=== PATIENT | female | born 1980 | race Caucasian/White ===

== ENCOUNTER 2019-11-18 01:45 | Emergency (ER) | payer OTHER, SELFPAY ==
[2019-11-18 01:59] VITALS: BP 123/80; PULSE 75; RESP 18; TEMP 36.4; O2SAT 100
--- NOTE | 2019-11-18 02:21 | ED.EAR ---
HPI - Ear Problem General Chief complaint: Ear Stated complaint: Ear Pain Source: patient Mode of arrival: ambulatory Limitations: no limitations History of Present Illness HPI Narrative: this is a 39-year-old female presents with dizziness with head movement, with some ear pain and pressure and from her left ear with sinus pressure and congestion with postnasal drip and sore throat, currently no fevers had fever approximately 1 week ago, had a few episodes of diarrhea with no crampy abdominal pain no nausea vomiting no shortness of breath no cough, no chest pain or pressure. Patient has dizziness where she feels off balance is specially when she turns her head from side to side. Complaint: ear pain Location: left ear Duration: constant Severity: moderate Relieving factors: nothing Exacerbating factors: position of head Context: Reports recent illness Discharge from ear: Reports no Related Data Home Medications Medication Instructions Recorded Confirmed bupropion HCl [Wellbutrin SR] 200 mg PO DAILY 11/18/19 11/18/19 sumatriptan succinate [Imitrex] 100 mg PO ONCE 11/18/19 11/18/19 Allergies Allergy/AdvReac Type Severity Reaction Status Date / Time acetaminophen Allergy Unknown Verified 11/18/19 02:22 [From Tylenol-Codeine #3] codeine Allergy Unknown Verified 11/18/19 02:22 [From Tylenol-Codeine #3] Review of Systems Review of Systems: All systems reviewed & are unremarkable except as noted in HPI and below PMFSH Past Medical History Medical History H. pylori infection Kidney stones Migraine Surgical History Surgical History H/O lithotripsy History of cholecystectomy Hx of tubal ligation Family History Family History Father Acute myocardial infarction Other Diabetes mellitus Hypertension Social History Social History Smoking status: Never smoker Alcohol intake: current Substance use: never Substance use type: does not use Gender identity (if verbalized by the patient): Female Spiritual care concerns: No Agree to blood products: Yes Exam HENMT: Head: normal to inspection Ears: hearing grossly normal bilaterally and TM abnormal General nose exam: Abnormal mucous membranes and turbinates present Face and sinus: Facial tenderness on exam of face and sinuses Mouth: Yes moist mucous membranes abnormal Eyes: General: appearance normal, both eyes and all related structures Visual Pelaez: normal visual pelaez by confrontation Neck: Neck: normal visual inspection, full ROM, no lymphadenopathy and no meningeal signs Chest: Chest palpation & inspection: normal inspection of the chest Resp: Effort & Inspection: normal respiratory effort and able to speak in complete sentences Auscultation: clear to auscultation bilaterally Cardio: Jugular venous distension: no JVD Palpation: normal PMI Rate: regular rate Rhythm: regular rhythm GI: Inspection: normal to inspection Auscultation: normal bowel sounds Back/Spine/Pelvis: Back: no CVA tenderness Skin: General skin exam: normal color and no rashes or lesions noted Neuro: General: oriented to person, oriented to place, oriented to time, patient oriented x3 and gait normal Extrem: General: normal to inspection, full ROM and capillary refill normal Psych: Appearance: grossly normal and well kempt Mental Status: mental status grossly normal Speech and movement: Normal speech and movement present Course Course Emergency Course: informed patient of test results, Vital Signs Vital signs: Vital Signs Temperature 36.4 C L 11/18/19 01:59 Pulse Rate 75 11/18/19 01:59 Respiratory Rate 18 11/18/19 01:59 Blood Pressure 123/80 11/18/19 01:59 Pulse Oximetry 100 11/18/19 01:59 Temper
[2019-11-18 02:34] LABS: Influenza Control Valid (Valid)
[2019-11-18 02:39] VITALS: BP 118/70; PULSE 70; RESP 18; O2SAT 100
[2019-11-18] MEDS: MECLIZINE HCL 25 MG TABLET PO (02:46)
[2019-11-19 18:17] LABS: SARS-CoV-2 RNA PCR Negative
== END 2019-11-18 02:50 | disposition home or self-care (01) ==
PROVIDERS: Emergency Provider Emergency Medicine; PCP Family Medicine
DX: J01.10 Acute frontal sinusitis, unspecified (principal)
CPT/HCPCS: 87081; 87635; 87804; 87880; 99283; A9270; C9803; U0003

== ENCOUNTER 2020-05-13 07:00 | Emergency (ER) | payer OTHER, SELFPAY ==
--- NOTE | 2020-05-13 07:33 | ED.UPPEXIN ---
HPI - Extremity Injury (Upper) General Chief Complaint: Extremity Injury, Upper Stated Complaint: shoulder pain after surgery Time Seen by Provider: 05/13/20 08:00 Source: patient Mode of arrival: ambulatory Limitations: no limitations History of Present Illness HPI narrative: 39-year-old woman who underwent right shoulder surgery for rotator cuff injury in March comes in today complaining of severe right anterior shoulder pain and tenderness that started 2 days ago. Patient states that over the weekend she thinks she over did it by some lifting and using floor implements at home. She denies any numbness or tingling. She denies any falls or trauma. She is currently taking anti-inflammatories and Tylenol for her discomfort. She states she went to physical therapy yesterday and that exacerbated her pain. MD complaint: injury to: right and shoulder Onset (ago): day(s) (2) Other Extremity Injury: Right: shoulder Other injuries: none Handedness: right Place: home Severity: severe Relieving factors: immobilization Exacerbating factors: movement of extremity and other (palpation) Associated symptoms: denies other symptoms Treatments prior to arrival: NSAIDS Related Data Home Medications Medication Instructions Recorded Confirmed sumatriptan succinate [Imitrex] 100 mg PO ONCE 11/18/19 05/13/20 citalopram 20 mg PO DAILY 05/13/20 diclofenac sodium 75 mg PO BID 05/13/20 05/13/20 hydroxyzine HCl See Rx Instructions .ROUTE .COMPLEX 05/13/20 05/13/20 topiramate 100 mg PO BID 05/13/20 05/13/20 Allergies Allergy/AdvReac Type Severity Reaction Status Date / Time codeine Allergy Unknown Verified 11/18/19 02:22 [From Tylenol-Codeine #3] Review of Systems Constitutional: Constitutional: Denies chills and Denies fever(s) Cardiovascular: Cardiovascular: Denies chest pain and Denies radiating jaw, neck or arm pain Respiratory: Respiratory: Denies cough and Denies dyspnea Gastrointestinal: Gastrointestinal: Denies nausea and Denies vomiting Musculoskeletal: Musculoskeletal: Reports arthralgias, Reports joint swelling and Denies muscle cramps Hematologic/Lymphatic: Hematologic/Lymphatic: Denies easy bleeding and Denies easy bruising Allergic/Immunologic: Allergic/Immunologic: Denies lip swelling and Denies tongue swelling [facility] Past Medical History Medical History (Updated 05/13/20 @ 08:13 by Ashvin Canales MD) H. pylori infection Kidney stones Migraine Surgical History Surgical History H/O lithotripsy H/O shoulder surgery History of cholecystectomy Hx of tubal ligation Family History Family History Father Acute myocardial infarction Other Diabetes mellitus Hypertension Social History Social History Smoking status: Never smoker Alcohol intake: current Substance use: never Substance use type: does not use Gender identity (if verbalized by the patient): Female Spiritual care concerns: No Agree to blood products: Yes Exam Const: General: healthy appearing and alert Orientation/consciousness: patient oriented x3 Limitations: no limitations Other: moderate acute distress. Resp: Effort & Inspection: normal respiratory effort and not labored Auscultation: clear to auscultation bilaterally, no rales, no rhonchi and no wheezes Cardio: Rate: regular rate Rhythm: regular rhythm Heart sounds: no murmurs Skin: General skin exam: normal color, no jaundice and no pallor Rashes: no rashes Neuro: General: patient oriented x3, moves all extremities, no focal motor deficits and CN's II-XI intact bilaterally Speech: normal speech Gait exam (Neuro): Normal gait present Extrem: General: normal to inspection and no clubbing, cyanosis or edema Other: Tenderness to palpation over the right anterior glenohumeral joint. Th
[2020-05-13 07:47] VITALS: BP 123/95; PULSE 70; RESP 16; TEMP 36.5; O2SAT 99
[2020-05-13] MEDS: HYDROcodone/acetaminophen (*CRX) 5-325 MG TABLET 1 TAB PO (08:11)
== END 2020-05-13 08:31 | disposition home or self-care (01) ==
PROVIDERS: Emergency Provider Emergency Medicine; PCP Family Medicine
DX: S46.911A Strain of unspecified muscle, fascia and tendon at shoulder and upper arm level, right arm, initial encounter (principal); X50.9XXA Other and unspecified overexertion or strenuous movements or postures, initial encounter
CPT/HCPCS: 99283; A9270

== ENCOUNTER 2021-08-18 14:10 | Emergency (ER) | payer OTHER, SELFPAY ==
--- NOTE | ~2021-08-18 | CT_ITS ---
EXAMINATION: CT abdomen pelvis wo con DATE: 08/18/2021 16:03 INDICATION: Right lower abdominal pain TECHNIQUE: Computed tomography (CT) of the abdomen and pelvis was performed without intravenous contr ast. The dose-length product was 267.10 mGy-cm. Automated exposure control and iterative reconstructi on technique were employed. COMPARISON: CT dated 01/25/2019. FINDINGS: Lung bases are unremarkable. No significant pleural or pericardial effusion. Heart size nor mal. No significant vascular abnormality. No lymphadenopathy. Nonobstructive bowel gas pattern with m oderate colonic fecal loading. There are surgical changes of tubal ligation. There is metallic radiod ensity in the right pelvis, of uncertain etiology. The appendix is not positively visualized. There is no pericecal inflammatory change to suggest appendicitis. Status post cholecystectomy. The liver, spleen, pancreas, adrenal glands are unremarkable. There are nonobstructing bilateral renal stones. No hydronephrosis. No ureteral stones are identified. No free air or free fluid. IMPRESSION: 1. Nonobstructing bilateral nephrolithiasis. Reviewed, dictated and finalized at location A.
[2021-08-18 14:25] VITALS: BP 105/58; PULSE 77; RESP 20; TEMP 36.3; O2SAT 100
[2021-08-18] MEDS: SODIUM CHLORIDE 0.9% IV 1,000 ML 999 ML IV CONT (15:23)
[2021-08-18] MEDS: ONDANSETRON INJ 4 MG/2 ML VIAL IV PUSH (15:24)
[2021-08-18 15:25] LABS: Basophils Absolute Auto 0.04 K/mm3 (0.00-0.10); Basophils Percent Auto 0.5 % (0.0-1.0); Eosinophils Percent Auto 3.8 % (1.0-6.0); Hematocrit 35.7 % (35.0-49.0); Hemoglobin 11.7 g/dL (12.0-15.0); Immature Granulocyte Absolute 0.02 K/mm3 (0.00-0.00); Immature Granulocyte Percent A 0.3 % (0.0-0.0); Lymphocytes Absolute Auto 2.87 K/mm3 (1.10-4.50); Lymphocytes Percent Auto 36.8 % (18.0-42.0); Mean Corpuscular HGB Conc 32.8 g/dL (32.0-36.0); Mean Corpuscular Hemoglobin 29.6 pg (27.0-31.0); Mean Corpuscular Volume 90.4 fL (78.0-102.0); Mean Platelet Volume 10.6 fl (9.2-11.8); Monocytes Percent Auto 6.4 % (2.0-11.0); Neutrophils Absolute Auto 4.1 K/mm3 (1.7-7.2); Neutrophils Percent Auto 52.2 % (50.0-70.0); Platelet Count Result 243 K/mm3 (150-420); Red Blood Count 3.95 M/mm3 (4.20-5.40); Red Cell Distribution Width 13.5 % (11.6-14.4); White Blood Count 7.8 K/mm3 (4.8-10.8)
[2021-08-18] MEDS: MORPHINE SULFATE (*CRX) 4 MG/ML INJ 2 MG IV PUSH (15:25)
[2021-08-18] MEDS: PANTOPRAZOLE SODIUM IV 40 MG VIAL IV PUSH (15:26)
[2021-08-18 15:29] LABS: Add Urine Microscopic? NO; Appearance Urine Clear (Clear); Bilirubin Urine Negative (Negative); Blood Urine Negative (Negative); Color Urine Yellow (Yellow); Glucose Urine UA Negative (Negative); Ketones Urine Negative (Negative); Leukocyte Esterase Ur Negative LEU/UL (Negative); Nitrate Urine Negative (Negative); Protein Urine Negative (Negative); Specific Grav Ur >= 1.030 (1.010-1.020); Urobilinogen Urine 0.2 mg/dL (0.2-1.0)
[2021-08-18 15:36] LABS: SPREG INTERNAL CONTROL Positive; Serum Qual hCG Negative
[2021-08-18 15:39] LABS: Partial Thromboplastin Time 30.3 SEC (23.90-30.70)
[2021-08-18 15:46] LABS: Alanine Aminotransferase 18 U/L (14-59); Albumin Level 3.1 g/dL (3.4-5.0); Alkaline Phosphatase 66 U/L (46-116); Anion Gap 11 mmol/L (8-16); Aspartate Amino Transferase 12 U/L (15-37); Bilirubin,Total 0.2 mg/dL (0.00-1.00); Blood Urea Nitrogen 13 mg/dL (7-18); Calcium 8.2 mg/dL (8.5-10.1); Carbon Dioxide 18 mmol/L (21-32); Chloride 110 mmol/L (98-108); Estimated CRCL calculation 56 ml/min; Estimated Glomerular Filt Rate > 60; Glucose 85 mg/dL (70-99); Lipase 81 U/L (73-393); Osmolality Calculated 287 mOsm/kg (285-295); Potassium 3.7 mmol/L (3.5-5.1); Sodium 139 mmol/L (136-145); Total Protein 6.2 g/dL (6.4-8.2)
[2021-08-18 16:00] VITALS: BP 114/64; PULSE 84; RESP 18; O2SAT 100
--- NOTE | 2021-08-18 16:53 | ED.ABDPAIN ---
HPI - Abdominal Pain General Chief Complaint: Abdominal Pain Stated Complaint: Right side pain,fever,diarrhea Time Seen by Provider: 08/18/21 14:14 Source: patient and RN notes reviewed Mode of arrival: ambulatory Limitations: no limitations History of Present Illness MD elicited complaint: abdominal pain Pertinent past history: gastritis Onset (ago): day(s) (1) Pain Consistency: constant and colicky Location: epigastric, RLQ and R flank Severity: mild Pain scale (0-10): 6 Quality: aching and dull Radiation: epigastric Exacerbating factors: nothing Relieving factors: nothing Associated symptoms: nausea, vomiting and diarrhea Related Data Home Medications Medication Instructions Recorded Confirmed lisdexamfetamine 40 mg capsule 40 mg PO DAILY 06/18/21 (Vyvanse) methylphenidate HCl 5 mg tablet 5 mg PO DAILY 06/18/21 sumatriptan succinate 50 mg tablet tablet PO 06/18/21 topiramate 100 mg capsule 100 mg PO BID 06/18/21 sprinkle,extended release 24 hr lisdexamfetamine 40 mg capsule 40 mg PO DAILY 08/18/21 08/18/21 (Vyvanse) methylphenidate HCl 10 mg tablet 10 mg PO DAILY 08/18/21 08/18/21 sumatriptan succinate 50 mg tablet 50 mg PO DAILY 08/18/21 08/18/21 topiramate 100 mg tablet 100 mg PO BID 08/18/21 08/18/21 Allergies Allergy/AdvReac Type Severity Reaction Status Date / Time codeine AdvReac Vomiting Verified 08/25/21 10:22 Review of Systems Review of Systems: All systems reviewed & are unremarkable except as noted in HPI and below Constitutional: Constitutional: Reports no additional constitutional complaints Eyes: Eyes: Reports no additional eye complaints ENT: Reports system reviewed and no additional complaints, except as documented Cardiovascular: Cardiovascular: Reports no additional cardiovascular complaints Respiratory: Respiratory: Reports no additional respiratory complaints Gastrointestinal: Gastrointestinal: Reports abdominal pain and Reports heartburn Genitourinary: Genitourinary: Reports no additional female genitourinary complaints Musculoskeletal: Musculoskeletal: Reports no additional musculoskeletal complaints Integumentary/Breasts: Skin/Breast: Reports system reviewed and no additional complaints, except as docu Neurologic: Reports system reviewed and no additional complaints, except as documented Psychiatric: Psychiatric: Reports no additional psychiatric complaints Endocrine: Endocrine: Reports no additional endocrine complaints Hematologic/Lymphatic: Hematologic/Lymphatic: Reports no additional hematologic/lymphatic complaints Allergic/Immunologic: Allergic/Immunologic: Reports no additional allergic/immunologic complaints [facility] Past Medical History Medical History Gastritis H. pylori infection Kidney stones Migraine Surgical History Surgical History H/O lithotripsy H/O shoulder surgery History of cholecystectomy Hx of tubal ligation Family History Family History Father Acute myocardial infarction Other Diabetes mellitus Hypertension Social History Social History Smoking status: Never smoker Alcohol intake: current Alcohol use details: rare Substance use: never Substance use type: does not use Gender identity (if verbalized by the patient): Female Spiritual care concerns: No Agree to blood products: Yes Exam Const: General: healthy appearing and no acute distress Nutritional Appearance: well nourished Orientation/consciousness: patient oriented x3 Limitations: no limitations HENMT: Head: normal to inspection Ears: external ears normal, TM's normal bilaterally and EAC's normal General nose exam: Normal external nose present and Normal nares present Face and sinus: normal facial exam and sinuses nonten
[2021-08-18 17:03] VITALS: BP 110/74; PULSE 79; RESP 18; TEMP 36.6; O2SAT 99
== END 2021-08-18 17:14 | disposition home or self-care (01) ==
PROVIDERS: Emergency Provider Emergency Medicine; PCP Family Medicine
DX: N20.0 Calculus of kidney (principal); K29.70 Gastritis, unspecified, without bleeding; K52.9 Noninfective gastroenteritis and colitis, unspecified
CPT/HCPCS: 36415; 74176; 80053; 81003; 83690; 84703; 85025; 85730; 96361; 96374; 96375; 99284; C9113; J2270; J2405; J7030

== ENCOUNTER 2021-11-17 12:01 | Outpatient (CLI) | payer BC, MEDICAID, SELFPAY ==
[2021-11-17 12:29] LABS: Basophils Absolute Auto 0.1 K/mm3 (0.0-0.1); Basophils Percent Auto 0.9 % (0.2-1.2); Eosinophils Absolute Auto 0.2 K/mm3 (0-0.3); Eosinophils Percent Auto 2.9 % (0-4.4); Hematocrit 39.4 % (37.0-47.0); Hemoglobin 12.6 g/dL (12.0-15.0); Immature Granulocyte Absolute 0.02 K/mm3 (0.00-0.031); Immature Granulocyte Percent A 0.3 % (0-0.5); Lymphocytes Absolute Auto 2.37 K/mm3 (0.9-3.2); Lymphocytes Percent Auto 36.2 % (18.3-44.2); Mean Corpuscular Hemoglobin 29.9 pg (26-34); Mean Corpuscular Volume 93.4 fl (80-100); Mean Platelet Volume 9.8 fl (7.4-10.4); Monocytes Absolute Auto 0.5 K/mm3 (0.1-0.6); Monocytes Percent Auto 7.5 % (2.6-8.5); Neutrophils Absolute Auto 3.4 K/mm3 (1.3-6.7); Neutrophils Percent Auto 52.2 % (45.5-73.1); Platelet Count Result 257 k/mm3 (150-375); Red Blood Count 4.22 M/mm3 (4.2-5.4); Red Cell Distribution Width 13.5 % (11.5-14.5); White Blood Count 6.5 K/mm3 (4.5-10.0)
== END 2021-11-17 12:02 | disposition home or self-care (01) ==
LOC: ANHSURGERY 12:08
PROVIDERS: PCP Family Medicine; Visit Provider Obstetrics & Gynecology
DX: N92.0 Excessive and frequent menstruation with regular cycle (principal); Z01.818 Encounter for other preprocedural examination
CPT/HCPCS: 36415; 85025; 86850; 86900; 86901

== ENCOUNTER 2021-11-20 01:10 | Day surgery (SDC) | payer BC, MEDICAID, SELFPAY ==
[2021-11-11 08:49] VITALS: BMI 27.9
--- NOTE | 2021-11-11 08:56 | PC.NURSE ---
Report to the Outpatient Waiting Room, entrance under the green pavilion located off [facility], at time _0930_ on date _[id number]_. OR Time: _1130_. Time changes happen often and if your time is changed the preop area will call you the afternoon before. - You and your visitor will be asked to self-screen and do not enter if you have any COVID symptoms. - Only one visitor and NO children visitors are allowed at this time. - The patient visitor is requested to leave or wait in car when not with patient due to restrictions. - A mask is required within the hospital. Patients may have clear liquids (water, carbonated beverages, clear teas, apple juice) until 3 hours prior to surgery with a maximum of 20 ounces. - No food from midnight until time of surgery Take the following medications with a SIP of water the morning of surgery: ___None Medications to discontinue per physician ____None Date to take last dose Please no make-up, nail citizen of [place], hairspray, perfume, deodorant, or body powder the day of surgery. No jewelry (including any body piercings) or valuables the day of surgery, leave them at home. Please take a shower or bath the night before, or the morning of, surgery with an antibacterial soap. Wear comfortable, loose fitting clothing. - Jewelry must be removed prior to entering the operating room. Rings and piercings that are not removed may be cut off. - The hospital will not accept responsibility for valuables. - Please leave all valuables, including medications, at home the day of surgery. If you are going home after surgery, a licensed petroleum transport driver must drive you home. - NO public transportation without another adult. - We recommend that an adult stay with you for 24 hours following discharge. - We also recommend that you do not drive, make important decision, drink alcoholic beverages, or take any drugs that were not prescribed by your health care provider for at least 24 hours after your discharge time. Follow any additional instructions given to you from your surgeon. If you or anyone in your household have experienced Covid symptoms in the past week, please notify your surgeon or the nurse liaison at the phone number below for possible testing. Telephone instructions given to _Patient___and asked if any additional questions and then verbalized understanding. Patient advised to call surgeon office or pre surgery nurse liaison [phone] if any additional questions.
--- NOTE | 2021-11-16 12:15 | PM.IMHP ---
H&P: HPI History of Present Illness Date/Time: 11/16/21 12:15 Chief Complaint: Pelvic pain and bleeding Narrative: This is a 41-year-old multiparous patient admitted for robotic hysterectomy. She has Essure and the he has had pain discomfort a second-degree prolapse. She opts removal of the uterus and tubes. Risks and benefits reviewed including but not exclusive of , aspiration pneumonia, bleeding, transfusion, perforation under to bowel, bladder, ureters, or other internal organs with need for laparotomy. She received the [employer] handout entitled hysterectomy as well as the [facility] [place] handout. She had all questions answered and asked to proceed PMFSH Past Medical History Medical History Gastritis H. pylori infection Kidney stones Migraine Surgical History Surgical History H/O lithotripsy H/O shoulder surgery History of cholecystectomy Hx of tubal ligation Family History Family History Father Acute myocardial infarction Other Diabetes mellitus Hypertension Social History Social History Smoking packs per day: 0.5 Smoking cigarettes per day: 10.0 Years smoked: 18 Smoking pack-years: 9.00 Smoking status: Former smoker Tobacco type: cigarettes Alcohol intake: current Alcohol use details: rare Substance use: never Substance use type: does not use Gender identity (if verbalized by the patient): Female Spiritual care concerns: No Agree to blood products: Yes Meds Home Medications and Allergies Home Medications Medication Instructions Recorded Confirmed Type lisdexamfetamine 40 mg capsule 40 mg PO DAILY 08/18/21 11/11/21 History (Surekha) methylphenidate HCl 10 mg tablet 10 mg PO DAILY 08/18/21 11/11/21 History ondansetron 4 mg disintegrating 4 mg PO Q8H #14 tabs 08/18/21 11/11/21 Rx tablet sumatriptan succinate 50 mg tablet 50 mg PO DAILY 08/18/21 11/11/21 History topiramate 100 mg tablet 100 mg PO BID 08/18/21 11/11/21 History omeprazole 40 mg capsule,delayed 40 mg PO BID 11/11/21 11/11/21 History release sucralfate 1 gram tablet 1 g PO QID 11/11/21 11/11/21 History Allergies Allergy/AdvReac Type Severity Reaction Status Date / Time codeine AdvReac Intermediate Vomiting Verified 11/11/21 08:45 Exam Const: General: cooperative, healthy appearing and comfortable Nutritional Appearance: average body habitus Orientation/consciousness: oriented to person, oriented to place and oriented to time HENMT: Head: normal to inspection Neck: Neck: normal visual inspection Chest: Chest palpation & inspection: normal inspection of the chest Resp: Effort & Inspection: normal respiratory effort Cardio: Rate: regular rate Rhythm: regular rhythm Heart sounds: S1 normal heart sound present and S2 normal heart sound present GI: Inspection: normal to inspection Auscultation: normal bowel sounds : Speculum Exam - Vagina: normal appearance of the vagina Speculum Exam - Cervix: normal appearance of the cervix Bimanual exam- vagina & uterus: enlarged and Uterine tenderness Bimanual Exam- Adnexa, other: normal adnexae Assessment and Plan Assessment and plan (1) Pelvic pain: Code(s): R10.2 - Pelvic and perineal pain Status: Acute (2) Vaginal bleeding: Code(s): N93.9 - Abnormal uterine and vaginal bleeding, unspecified Status: Acute Plan Robotic total vaginal hysterectomy and bilateral salpingectomy as
[2021-11-20] VITALS (11 sets, daily range): BP systolic 93–132; BP diastolic 63–86; PULSE 49–77; RESP 12–18; TEMP 36.3–36.6; O2SAT 95–100
--- NOTE | 2021-11-20 06:30 | WPDHPUPDATE1 ---
History and Physical Update Update Date/Time: 11/20/21 06:30 History and Physical has been reviewed, including an updated exam of the patient. There are NO changes in the patient's condition. Risks, benefits, and alternatives have been discussed and questions answered. Patient agrees to proceed with procedure.
[2021-11-20] MEDS: ACETAMINOPHEN 500 MG TABLET 1000 MG PO (09:17)
[2021-11-20] MEDS: LACTATED RINGERS 1,000 ML 30 ML IV CONT ×2 (09:30→12:58)
[2021-11-20] MEDS: KETOROLAC 15 MG/ML VIAL (*BKC) IV PUSH (09:31)
--- NOTE | 2021-11-20 10:21 | WPDANESEPPF ---
Anes - Initial Pre Proc Eval Procedure: Operation Date: 11/20/21 11:30 Proposed Procedures p Robotic Assisted Total Vaginal Hysterectomy with Bilateral Salpingectomy - Justice Padilla MD Date/Time: 11/20/21 10:21 Surgeon: Justice Padilla MD Pre Op Diagnosis: Pelvic Pain, Heavy Bleeding, Essure Implant Patient Data Age: 41 Gender: F Height: 1.5 m Weight: 63 kg Last Vital Signs Temp 36.6 C 11/20/21 09:00 Pulse 77 11/20/21 09:00 Resp 16 11/20/21 09:00 BP 132/86 11/20/21 09:00 Pulse Ox 100 11/20/21 09:00 O2 Del Method Room Air 11/20/21 09:00 Allergies Allergy/AdvReac Type Severity Reaction Status Date / Time codeine AdvReac Intermediate Vomiting Verified 11/20/21 09:14 Home Medications Medication Instructions Recorded Confirmed Type lisdexamfetamine 40 mg capsule 40 mg PO DAILY 08/18/21 11/20/21 History (Vyvanse) methylphenidate HCl 10 mg tablet 10 mg PO DAILY 08/18/21 11/20/21 History ondansetron 4 mg disintegrating 4 mg PO Q8H #14 tabs 08/18/21 11/20/21 Rx tablet sumatriptan succinate 50 mg tablet 50 mg PO DAILY 08/18/21 11/20/21 History topiramate 100 mg tablet 100 mg PO BID 08/18/21 11/20/21 History omeprazole 40 mg capsule,delayed 40 mg PO BID 11/11/21 11/20/21 History release sucralfate 1 gram tablet 1 g PO QID 11/11/21 11/20/21 History hydrocodone 5 mg-acetaminophen 325 1 tablet PO Q4H PRN pain #30 tabs 11/20/21 Rx mg tablet Patient hx anesthesia problems: none Family hx anesthesia problems: none Results Review: All pre-operative results and documents have been reviewed as part of the pre-operative evaluation. [facility] Past Medical History Medical History Gastritis H. pylori infection Kidney stones Migraine Surgical History Surgical History H/O lithotripsy H/O shoulder surgery History of cholecystectomy Hx of tubal ligation Family History Family History Father Acute myocardial infarction Other Diabetes mellitus Hypertension Social History Social History Smoking packs per day: 0.5 Smoking cigarettes per day: 10.0 Years smoked: 18 Smoking pack-years: 9.00 Smoking status: Former smoker Tobacco type: cigarettes Alcohol intake: current Alcohol use details: rare Substance use: never Substance use type: does not use Living arrangements: with family Gender identity (if verbalized by the patient): Female Spiritual care concerns: No Agree to blood products: Yes Anes - Eval Final PreProcedure Day of Procedure 11/20/21 10:21 Patient weight: overweight Heart: regular rate and rhythm Lungs: clear to auscultation Airway: Mallampati scale class II Neurological: alert and oriented Last oral intake: >/= 8 hours ASA classification: II Emergent: no Anesthetic plan: proceed Anesthesia type and monitoring: general ETT and standard monitoring Results Review: All pre-operative results and documents have been reviewed as part of the pre-operative evaluation. Informed Consent: The patient's anesthetic plan and its attendant risks and benefits were discussed with the patient/family/POA. Questions were solicited and answers provided to the satisfaction of the patient/family/POA.
[2021-11-20] MEDS: ceFAZolin 2 GM/D5W 50 ML 2 GM/50 ML BAG IVPB (11:43)
--- NOTE | 2021-11-20 12:48 | W.PM.PROC2 ---
Procedure Note - Detailed Date of Procedure 11/20/21 Pre-op Diagnosis Pelvic Pain, Heavy Bleeding, Essure Implant Post-op Diagnosis Other Procedure Performed Robotic total vaginal hysterectomy bilateral salpingectomy /destruction of endometriosis Surgeon Justice Padilla MD Anesthesia General Indications sh 41-year-old female with pelvic pain an Essure implants that were in the wrong position. She has also had irregular bleeding Findings the uterus was enlarged. The Essure implants were seen puncturing through the fundus of the uterus bilaterally. A portion was seen attached to bladder mucosa. Multiple powder burn endometriosis areas were seen along the uterosacral ligaments Description of Procedure the patient was prepped draped in the normal sterile fashion placed in the dorsal lithotomy position. Under excellent general trach anesthesia weighted speculum placed in posterior fornix vagina. Anterior lip of the cervix grasped with single-tooth tenaculum the uterus sounded to 10cm. Serial dilatation was performed followed by passage of the 10. ARLENE and the the 3. 0.5 cold cup. A 16 Telugu catheter was placed in the bladder and drained of clear urine. The remainder the instruments removed and gloves were changed. a supraumbilical incision was made the Veress needle passed in the abdomen. Abdomen filled with CO2 gas [id number] the 8mm trocar advanced in the abdomen the downside visualized with no injury seen. Patient placed in Trendelenburg and right left lateral quadrant incisions made 8mm trocars were then entered through the peritoneum under direct visualization assuring no injury. A right upper quadrant incision made the 8mm trocar advanced under direct visualization assuring no injury. The robot was docked. Attention was turned to the console. The left round ligament was grasped, burned, cut. Anteriorly a bladder flap was formed by sharply dissecting the peritoneum and reflecting the bladder caudally away from the cervix and uterus to the opposite round ligament was clamped, burned, cut. The Essure could be seen protruding through the uterine fundus bilaterally. The left fallopian tube was sharply dissected away from the uterine and ovarian tissue and passed off through the right upper quadrant incision. The opposite fallopian tube was dissected away and passed through the right upper quadrant incision as well. The utero-ovarian ligament was then skeletonized on the left conserve the left ovary. This was clamped, burned, cut and brought to the level of previously cut round ligament. In like fashion conserving the right ovary the utero-ovarian ligament was clamped, burned, cut and brought to the level of previously cut round ligament. The cardinal and broad ligaments were serially skeletonized then on the left hugging the cervix and uterus clamping burning and cutting until the uterine vessels could be seen on the left. These were individually clamped, burned, cut. In like fashion the right cardinal and broad ligaments were serially skeletonized clamping burning cutting it and hugging the cervix and uterus until the large uterine vessels could be seen on the right. These were individually clamped, burned, cut. At that point excellent blanching the uterus was noted and the colpotomy incision was made in the cervix and uterus were passed through the vagina. The vagina then closed with continuous running 0V lock from lateral edge to lateral edge back to the midline. Irrigation undertaken to clear. The small areas of endometriosis were then sharply cut with monopolar cautery. Irrigation was undertaken and excellent hemostasis noted. The robot was undocked. The incisions closed with 4 Monocryl and glue after gas had been removed from the abdomen. The patient was awakened and went to recovery in satisfactory condition. All sponge, needle, instrument counts were correct. There were no immediate complications noted Estimated Blood Los
[2021-11-20] MEDS: fentaNYL CITRATE INJ (*CRX) 100 MCG/2 ML VIAL 25 MCG IV PUSH ×4 (13:15→13:32)
[2021-11-20] MEDS: HYDROmorphone HCL INJ (*CRX) 1 MG/ML SYR 0.5 MG IV PUSH ×4 (13:47→14:36)
[2021-11-20] MEDS: DEXTROSE 5%/LACTATED RINGERS 1,000 ML 125 ML IV CONT (15:43)
--- NOTE | 2021-11-20 17:02 | PM.DS ---
DS: Admitting Diagnosis Discharge Date 11/21/2021 Admitting Diagnosis Enlarged uterus/pelvic pain/displacement of Essure DS: Discharge Diagnosis Discharge Diagnosis (1) Vaginal bleeding: Code(s): N93.9 - Abnormal uterine and vaginal bleeding, unspecified Status: Acute (2) Pelvic pain: Code(s): R10.2 - Pelvic and perineal pain Status: Acute DS: Summary Hospital Course Reason for hospitalization: Patient was admitted for robotic hysterectomy and bilateral salpingectomy Hospital Course: The patient underwent bilateral salpingectomy and robotic hysterectomy on 11/20/2021. The procedure was unremarkable. She did have extruded Essure on either side and had some small areas of endometriosis were treated. Her ovaries remain. Her hospital course was unremarkable. She remained afebrile. She was up, ambulating, voiding difficulty, eating a regular diet, voiding without difficulty, and general without complaints. Time Spent with Patient Time attestation: Total time spent providing and/or coordinating discharge services: Exam Const: General: cooperative, healthy appearing and comfortable Orientation/consciousness: oriented to person, oriented to place and oriented to time Resp: Effort & Inspection: normal respiratory effort Cardio: Rate: regular rate Rhythm: regular rhythm Heart sounds: S1 normal heart sound present and S2 normal heart sound present GI: Inspection: normal to inspection and incision (Wants were clean dry and intact) DS: Data Data Completed and Pending Pending studies at discharge: Pending at discharge 11/20/21 12:07 Surgical [PTH] Routine Discharge Plan Discharge Patient Disposition: Home, Self-Care Stand Alone Forms: General Discharge Instructions Follow-up/Referrals: Justice Shipley MD [Physician] - Discharge Medications: New hydrocodone-acetaminophen 5-325 mg tablet 1 tablet PO Q4H PRN (Reason: pain) Qty: 30 0RF Continued methylphenidate HCl 10 mg tablet 10 mg PO DAILY sumatriptan succinate 50 mg tablet 50 mg PO DAILY topiramate 100 mg tablet 100 mg PO BID Vyvanse 40 mg capsule 40 mg PO DAILY ondansetron 4 mg tablet,disintegrating 4 mg PO Q8H Qty: 14 0RF omeprazole 40 mg Capsule,Delayed Release(Dr/Ec) 40 mg PO BID sucralfate 1 gram tablet 1 g PO QID
[2021-11-20] MEDS: KETOROLAC 30 MG/ML VIAL (*BKC) IV PUSH (17:10)
[2021-11-20] MEDS: ONDANSETRON HCL ODT 4 MG TABLET (19:13)
[2021-11-20] MEDS: SIMETHICONE 80 MG TAB.CHEW PO ×2 (19:13→23:35)
[2021-11-20] MEDS: HYDROcodone/acetaminophen (*CRX) 10-325 MG TABLET 1 TAB PO ×2 (19:14→23:34)
[2021-11-20] MEDS: PANTOPRAZOLE 40 MG TABLET PO (20:40)
[2021-11-21] VITALS: BP 108/70; PULSE 50; RESP 16; TEMP 36.3; O2SAT 100
[2021-11-21] MEDS: HYDROcodone/acetaminophen (*CRX) 10-325 MG TABLET 1 TAB PO ×2 (03:46→07:24)
[2021-11-21 05:10] LABS: Basophils Percent Auto 0.2 % (0.2-1.2); Eosinophils Percent Auto 0.1 % (0-4.4); Hematocrit 34.3 % (37.0-47.0); Hemoglobin 10.7 g/dL (12.0-15.0); Immature Granulocyte Absolute 0.03 K/mm3 (0.00-0.031); Immature Granulocyte Percent A 0.3 % (0-0.5); Lymphocytes Absolute Auto 1.83 K/mm3 (0.9-3.2); Mean Corpuscular HGB Conc 31.2 g/dl (32-36); Mean Corpuscular Hemoglobin 29.7 pg (26-34); Mean Corpuscular Volume 95.3 fl (80-100); Mean Platelet Volume 10.5 fl (7.4-10.4); Monocytes Absolute Auto 0.6 K/mm3 (0.1-0.6); Neutrophils Absolute Auto 6.2 K/mm3 (1.3-6.7); Neutrophils Percent Auto 71.4 % (45.5-73.1); Platelet Count Result 216 k/mm3 (150-375); Red Cell Distribution Width 13.2 % (11.5-14.5); White Blood Count 8.7 K/mm3 (4.5-10.0)
--- NOTE | 2021-11-21 07:38 | PM.GYNPNOP ---
DRAWER IN HAND - A/P Postoperative Procedures: Procedures Operation Date: 11/20/21 11:30 Actual Procedure Side Surgeon p Robotic Assisted Total Vaginal Hysterectomy with Bilateral Salpingectomy; Destruction of Endometriosis Bilateral Justice Padilla MD Postoperative day: 1 Postoperative status: doing well Postoperative plan: routine post-op care, see orders, advance diet and discharge Time Spent With Patient Time: Total time spent is greater than 50% in coordination of care (as documented) at patient's floor/unit and/or counseling patient: Time with patient: less than 15 minutes DRAWER IN HAND- PN:Subj Post-Op Subjective Date/time seen: 11/21/21 07:38 Subjective: patient reports feeling better, patient has no complaints, patient desires discharge, pain is well controlled and patient is tolerating oral intake Exam Const: General: cooperative, healthy appearing and comfortable Nutritional Appearance: average body habitus Orientation/consciousness: oriented to person, oriented to place and oriented to time HENMT: Head: normal to inspection Resp: Effort & Inspection: normal respiratory effort GI: Inspection: normal to inspection and incision (Wounds were clean dry intact) DRAWER IN HAND - PN: Obj Data Vital Signs Vital Signs: Vital Signs - 24 hr 11/20/21 09:00 11/20/21 12:58 11/20/21 13:13 Temperature 98 F 97.4 F L Pulse Rate 77 67 55 L Respiratory Rate 16 18 15 Blood Pressure 132/86 93/73 L 111/79 Pulse Oximetry 100 100 100 Oxygen Delivery Room Air Simple Face Mask Simple Face Mask Oxygen Flow Rate 10 10 11/20/21 13:28 11/20/21 13:43 11/20/21 14:00 Temperature Pulse Rate 58 L 58 L 56 L Respiratory Rate 16 12 12 Blood Pressure 109/72 114/75 118/71 Pulse Oximetry 100 99 98 Oxygen Delivery Room Air Room Air Room Air Oxygen Flow Rate 11/20/21 14:15 11/20/21 14:30 11/20/21 14:45 Temperature Pulse Rate 56 L 49 L 52 L Respiratory Rate 12 12 16 Blood Pressure 107/75 107/73 110/71 Pulse Oximetry 95 95 96 Oxygen Delivery Room Air Room Air Room Air Oxygen Flow Rate 11/20/21 15:40 11/20/21 18:53 11/20/21 19:50 Temperature 97.5 F L 97.4 F L Pulse Rate 56 L 51 L Respiratory Rate 16 18 Blood Pressure 107/63 104/64 Pulse Oximetry 97 100 Oxygen Delivery Room Air Oxygen Flow Rate 11/21/21 00:00 Temperature 97.4 F L Pulse Rate 50 L Respiratory Rate 16 Blood Pressure 108/70 Pulse Oximetry 100 Oxygen Delivery Oxygen Flow Rate Intake/Output Intake/Output: Intake & Output 11/18/21 11/19/21 11/20/21 11/21/21 23:59 23:59 23:59 23:59 Intake Total 1250 200 Output Total 150 600 Balance 1100 -400 Meds/Results Medications: Active Medications Generic Name Dose Route Start Last Admin Trade Name Freq PRN Reason Stop Dose Admin Hydrocodone Bitart/Acetaminophen 1 tab 11/20/21 14:57 Hydrocodone/Acetaminophen (*Crx) 5-325 Mg Tablet PO Q3H PRN Pain Rated 5 or Less Hydrocodone Bitart/Acetaminophen 1 tab 11/20/21 14:57 11/21/21 07:24 Hydrocodone/Acetaminophen (*Crx) 10-325 Mg Tablet PO 1 tab Q3H PRN Administration Pain Rated 6 or Greater Docusate Sodium 100 mg 11/20/21 17:00 11/20/21 17:44 Docusate Sodium 100 Mg Capsule PO Not Given BID SYED Enoxaparin Sodium 40 mg 11/21/21 09:00 Enoxaparin 40 Mg/0.4 Ml Syringe SUB-Q DAILY SYED Dextrose/Lactated Ringer's 1,000 mls @ 125 mls/hr 11/20/21 14:57 11/21/21 06:57 Dextrose 5%/Lactated Ringers IV CONT Not Given .Q8H SYED Ibuprofen 600 mg 11/20/21 14:57 Ibuprofen 600 Mg Tablet PO Q6H PRN Cramping Ketorolac Tromethamine 30 mg 11/20/21 14:57 11/20/21 17:10 Ketorolac 30 Mg/Ml Vial (*Bkc) IV PUSH 11/25/21 14:56 30 mg Q6H PRN Administration Pain Rated 4-6 Naloxone HCl 0.1 mg 11/20/21 14:57 Naloxone Hcl 0.4 Mg/Ml Vial IV PUSH Q2M PRN Respiratory rate less than 10 Ondansetron HCl 4 mg 11/20/21 14:57 Ondansetron Inj 4 Mg/2 Ml Vi
[2021-11-21 08:00] VITALS: BP 103/69; PULSE 48; RESP 12; TEMP 36.4; O2SAT 100
[2021-11-21] MEDS: ENOXAPARIN 40 MG/0.4 ML SYRINGE SUB-Q (09:11)
[2021-11-21] MEDS: DOCUSATE SODIUM 100 MG CAPSULE PO (09:11)
[2021-11-21] MEDS: PANTOPRAZOLE 40 MG TABLET PO (09:11)
== END 2021-11-21 10:01 | disposition home or self-care (01) ==
LOC: ANHSURGERY 08:48 → ANHOB2 15:06
PROVIDERS: PCP Family Medicine; Visit Provider Obstetrics & Gynecology
PROC: (CPT 58662; principal; 2021-11-20 11:30)
DX: N93.9 Abnormal uterine and vaginal bleeding, unspecified (principal); R10.2 Pelvic and perineal pain; N80.3C3 Endometriosis of bilateral uterosacral ligament(s), unspecified depth; N80.00 Endometriosis of the uterus, unspecified; N83.8 Other noninflammatory disorders of ovary, fallopian tube and broad ligament; T83.39XA Other mechanical complication of intrauterine contraceptive device, initial encounter; Y83.8 Other surgical procedures as the cause of abnormal reaction of the patient, or of later complication, without mention of misadventure at the time of the procedure; Z87.891 Personal history of nicotine dependence
CPT/HCPCS: 58662; 58552; S2900; 36415; 85025; 88307; 99199; A9270; J0690; J1100; J1170; J1650; J1885; J2250; J2405; J2704; J2710; J3010; J7030; J7120; J7121

== ENCOUNTER 2022-04-20 15:10 | Emergency (ER) | payer MEDICAID, SELFPAY ==
--- NOTE | ~2022-04-20 | CT_ITS ---
EXAMINATION: CT abdomen pelvis wo con DATE: 04/20/2022 16:17 INDICATION: Hematuria. Acute pelvic pain. TECHNIQUE: Computed tomography (CT) of the abdomen and pelvis was performed without intravenous contr ast. Automated exposure control and iterative reconstruction technique were employed. The dose-length product was 177.40 mGy-cm. COMPARISON: 08/18/2021 and 01/25/2019 FINDINGS: Lung bases are clear. Heart size is normal. No pericardial or pleural effusion. Cholecystectomy clips the gallbladder fossa. Liver, spleen, pancreas and bilateral adrenal glands are normal. 2.1 cm cyst at the upper pole of the right kidney. Couple additional subcentimeter cysts in the left kidney with intermediate attenuation on the current study but with characteristic low attenuation without enhance ment on earlier study from 2019. Bilateral nephrolithiasis with 4 stones measuring up to 3-4 mm at th e upper pole of the left kidney and 5 stones measuring up to 2 mm in the left kidney. No ureteral sto og or hydronephrosis. Tiny appendicolith at the tip of the normal appendix with no periappendiceal i nflammatory stranding to suggest acute appendicitis. No abnormal bowel wall thickening or obstruction . Bladder is normal. The uterus is not identified and has likely been surgically resected. No free in traperitoneal gas or fluid. No pathologically enlarged abdominal or pelvic lymphadenopathy. Bones are unremarkable. IMPRESSION: 1. Bilateral nonobstructing nephrolithiasis. Reviewed, dictated and finalized at location L.
[2022-04-20 15:10] VITALS: BP 131/97; PULSE 95; RESP 18; TEMP 36.2; TEMP 36.6; O2SAT 100
--- NOTE | 2022-04-20 15:43 | ED.FEMALEGU ---
HPI - Female Genitourinary General Chief complaint: Urogenital-Female Stated complaint: painful urination Time Seen by Provider: 04/20/22 15:38 Source: patient and RN notes reviewed Mode of arrival: ambulatory Limitations: no limitations History of Present Illness MD elicited complaint: other ( Pressure when she urinates) Onset (ago): minute(s) (30) Location of symptoms: perineum Severity: moderate Quality of pain: dull Consistency: now resolved Vaginal discharge: none Vaginal bleeding: none Exacerbating factors: none Relieving factors: none Associated symptoms: denies other symptoms Treatment prior to arrival: none Related Data Home Medications Medication Instructions Recorded Confirmed lisdexamfetamine 40 mg capsule 40 mg PO DAILY 08/18/21 04/20/22 (Vyvanse) methylphenidate HCl 10 mg tablet 10 mg PO DAILY 08/18/21 04/20/22 topiramate 100 mg tablet 100 mg PO BID 08/18/21 04/20/22 omeprazole 40 mg capsule,delayed 40 mg PO BID 11/11/21 04/20/22 release sucralfate 1 gram tablet 1 g PO QID 11/11/21 04/20/22 Allergies Allergy/AdvReac Type Severity Reaction Status Date / Time codeine AdvReac Intermediate Vomiting Verified 04/20/22 15:32 Review of Systems Review of Systems: All systems reviewed & are unremarkable except as noted in HPI and below PMFSH Past Medical History Medical History Gastritis H. pylori infection Kidney stones Migraine Surgical History Surgical History H/O lithotripsy H/O shoulder surgery History of cholecystectomy Hx of tubal ligation Family History Family History Father Acute myocardial infarction Other Diabetes mellitus Hypertension Social History Social History Smoking packs per day: 0.5 Smoking cigarettes per day: 10.0 Years smoked: 18 Smoking pack-years: 9.00 Smoking status: Former smoker Tobacco type: cigarettes Alcohol intake: current Alcohol use details: rare Substance use: never Substance use type: does not use Living arrangements: with family Gender identity (if verbalized by the patient): Female Spiritual care concerns: No Agree to blood products: Yes Exam Const: General: healthy appearing, no acute distress and alert Nutritional Appearance: well nourished Orientation/consciousness: patient oriented x3 Limitations: no limitations HENMT: Head: normal to inspection Ears: external ears normal Face/Nose/Sinus: Normal external nose present Face and sinus: normal facial exam Mouth: Yes moist mucous membranes Eyes: Conjunctivae: conjunctivae normal Pupils: Equal, round and reactive pupils present EOM: EOMs intact bilaterally Neck: Neck: normal visual inspection Resp: Effort & Inspection: normal respiratory effort Auscultation: clear to auscultation bilaterally Cardio: Rate: regular rate Rhythm: regular rhythm GI: GI Palp: Yes Soft to palpation, Yes Tenderness to palpation present (GI) ( mild suprapubic), No Guarding due to palpation present (GI) and No Rebound tenderness present Auscultation: normal bowel sounds Back/Spine/Pelvis: Cervical Spine: cervical ROM normal Thoracic/Lumbar Spine: thoraco-lumbar ROM normal Skin: General skin exam: normal color Rashes: no rashes Neuro: General: patient oriented x3, moves all extremities, no focal motor deficits and CN's II-XI intact bilaterally Speech: normal speech Gait exam (Neuro): Normal gait present Extrem: General: normal to inspection and no clubbing, cyanosis or edema Psych: Appearance: grossly normal and well kempt Mental Status: mental status grossly normal Affect: normal affect Attitude: cooperative Course Vital Signs Vital signs: Vital Signs Temperature 36.2 C L 04/20/22 15:10 Pulse Rate 95 04/20/22 15:10 Respiratory Rate 18 04/20
[2022-04-20 15:44] LABS: Bilirubin Urine Negative (Negative); Blood Urine 3+ (Negative); Color Urine Light Yellow (Yellow); Glucose Urine UA Negative (Negative); Ketones Urine Negative (Negative); Leukocyte Esterase Ur Negative (Negative); Nitrate Urine Negative (Negative); Protein Urine Trace (Negative); Urobilinogen Urine 0.2 mg/dL (0.2-1.0); pH Urine 6.5 (5.0-8.0)
[2022-04-20 15:47] LABS: Add Urine Microscopic? YES; Appearance Urine Slightly Cloudy (Clear); RBC Urine >75 /hpf (0-2)
[2022-04-20 15:48] LABS: Bacteria Urine 1+ /hpf; Squamous Epithelial Cell Urine Few /hpf (Few); WBC Urine None seen /hpf (0-3)
--- NOTE | 2022-04-20 16:08 | PC.NURSE ---
PT IS IN CT AT THIS TIME. PT IS AWAITING LAB RESULTS. NAD NOTED PRIOR TO CT. WILL CONTINUE TO MONITOR. SIG OTHER AT BEDSIDE.
[2022-04-20 16:11] LABS: Basophils Absolute Auto 0.05 K/mm3 (0.00-0.10); Basophils Percent Auto 0.5 % (0.0-1.0); Hematocrit 43.4 % (35.0-49.0); Hemoglobin 14.3 g/dL (12.0-15.0); Immature Granulocyte Absolute 0.04 K/mm3 (0.00-0.00); Immature Granulocyte Percent A 0.4 % (0.0-0.0); Lymphocytes Absolute Auto 2.58 K/mm3 (1.10-4.50); Lymphocytes Percent Auto 24.7 % (18.0-42.0); Mean Corpuscular HGB Conc 32.9 g/dL (32.0-36.0); Mean Corpuscular Hemoglobin 30.8 pg (27.0-31.0); Mean Corpuscular Volume 93.3 fL (78.0-102.0); Mean Platelet Volume 9.9 fl (9.2-11.8); Monocytes Absolute Auto 0.72 K/mm3 (0.10-0.90); Monocytes Percent Auto 6.9 % (2.0-11.0); Neutrophils Absolute Auto 6.9 K/mm3 (1.7-7.2); Neutrophils Percent Auto 66.5 % (50.0-70.0); Platelet Count Result 250 K/mm3 (150-420); Red Blood Count 4.65 M/mm3 (4.20-5.40); Red Cell Distribution Width 13.2 % (11.6-14.4); White Blood Count 10.4 K/mm3 (4.8-10.8)
[2022-04-20 16:26] LABS: Alanine Aminotransferase 18 U/L (14-59); Albumin Level 3.9 g/dL (3.4-5.0); Alkaline Phosphatase 71 U/L (46-116); Anion Gap 10 mmol/L (8-16); Aspartate Amino Transferase 12 U/L (15-37); Bilirubin,Total 0.5 mg/dL (0.00-1.00); Blood Urea Nitrogen 10 mg/dL (7-18); Calcium 9.1 mg/dL (8.5-10.1); Carbon Dioxide 28 mmol/L (21-32); Chloride 104 mmol/L (98-108); Estimated Glomerular Filt Rate > 60; Glucose 98 mg/dL (70-99); Osmolality Calculated 293 mOsm/kg (285-295); Potassium 3.6 mmol/L (3.5-5.1); Sodium 142 mmol/L (136-145); Total Protein 7.5 g/dL (6.4-8.2)
[2022-04-20 17:02] VITALS: BP 128/78; PULSE 88; RESP 16; O2SAT 98
== END 2022-04-20 17:02 | disposition home or self-care (01) ==
PROVIDERS: Emergency Provider Emergency Medicine; PCP Family Medicine
DX: N02.9 Recurrent and persistent hematuria with unspecified morphologic changes (principal); Z87.891 Personal history of nicotine dependence
CPT/HCPCS: 36415; 74176; 80053; 81001; 85025; 99284

== ENCOUNTER 2022-12-20 11:27 | Outpatient (CLI) | payer BC, SELFPAY ==
--- NOTE | ~2022-12-20 | XR_ITS ---
Left Shoulder Technique: AP and scapular Y views were obtained. Clinical History: Pain Findings: No acute fracture seen. Possible mild widening of the coracoclavicular distance. Glenohumer al joint is intact. Soft tissues are unremarkable. Impression: No acute fracture. Possible mild widening of the coracoclavicular distance. Correlate for AC joint separation, possibly chronic. Consider bilateral weightbearing and nonweightbearing shoulder radiographs to further assess for AC joint instability, as indicated. Reviewed, dictated and finalized at location M. LASS LENS GENERATOR Impression: No acute fracture. Possible mild widening of the coracoclavicular distance. Correlate for AC joint separation, possibly chronic. Consider bilateral weightbearing and nonweightbe aring shoulder radiographs to further assess for AC joint instability, as indic ated.
== END 2022-12-20 11:28 | disposition home or self-care (01) ==
LOC: CHSIMG 11:32
PROVIDERS: PCP Family Medicine; Visit Provider Family Medicine
DX: M25.512 Pain in left shoulder (principal)
CPT/HCPCS: 73030

== ENCOUNTER 2022-12-21 12:10 | Outpatient (CLI) | payer BC, SELFPAY ==
--- NOTE | ~2022-12-21 | XR_ITS ---
AP weightbearing and nonweightbearing views of the bilateral AC joints CLINICAL HISTORY: Injury FINDINGS: Bilateral AC joints are symmetric. No fracture or dislocation seen. No instability seen wit h weightbearing. Soft tissues are unremarkable. IMPRESSION: Unremarkable exam. Reviewed, dictated and finalized at location . SS TEST TECHNICIAN IMPRESSION: Unremarkable exam.
== END 2022-12-21 12:11 | disposition home or self-care (01) ==
LOC: CHSIMG 12:13
PROVIDERS: PCP Family Medicine; Visit Provider Family Medicine
DX: M25.512 Pain in left shoulder (principal)
CPT/HCPCS: 73050

== ENCOUNTER 2023-06-19 22:19 | Emergency (ER) | payer BC, SELFPAY ==
[2023-06-19] VITALS (14 sets, daily range): BP systolic 111–136; BP diastolic 85–107; PULSE 87–112; RESP 20; TEMP 36.6; O2SAT 93–98
--- NOTE | ~2023-06-19 | XR_ITS ---
Portable chest x-ray Comparison: 01/25/2019 Clinical History: Chest pain Findings: Lungs are clear, without focal consolidation or pleural effusion. Cardiomediastinal silho uette is stable. Bones and soft tissues are unremarkable. Impression: Clear lungs. Reviewed, dictated and finalized at location . Impression: Clear lungs.
--- NOTE | 2023-06-19 22:26 | ED.GENADULT ---
HPI - General Adult General Chief complaint: Unspecified Stated complaint: foreign body sensation Time Seen by Provider: 06/19/23 22:24 Source: patient Mode of arrival: ambulatory Limitations: no limitations History of Present Illness HPI narrative: patient is a 42-year-old female with a significant past medical history that presents today GERD pain. She has extremity wound is bad GERD pain that starts down the esophagus. She says also feels like something is stuck in her esophagus. She is able to tolerate liquids and solids currently. She says she does feel little bit nauseous. Denies any vomiting or diarrhea. Denies any fevers. She states the pain is about a 6/10 down the esophagus and says she does have a history of very bad GERD pain. He took some [id number] Pepto-Bismol this did not help. MD complaint: GERD Onset (ago): day(s) Location: chest and abdomen Radiation: non-radiation Severity: moderate Severity scale (1-10): 4 Quality: burning and stabbing Pain Consistency: constant Relieving factors: none Exacerbating factors: none Associated symptoms: denies other symptoms Treatments prior to arrival: none Related Data Home Medications Medication Instructions Recorded Confirmed lisdexamfetamine 40 mg capsule 40 mg PO DAILY 08/18/21 04/20/22 (Vyvanse) methylphenidate HCl 10 mg tablet 10 mg PO DAILY 08/18/21 04/20/22 topiramate 100 mg tablet 100 mg PO BID 08/18/21 04/20/22 sucralfate 1 gram tablet 1 g PO QID 11/11/21 04/20/22 Allergies Allergy/AdvReac Type Severity Reaction Status Date / Time codeine AdvReac Intermediate Vomiting Verified 04/20/22 15:32 Review of Systems Review of Systems: All systems reviewed & are unremarkable except as noted in HPI and below Constitutional: Constitutional: Reports as per HPI and Reports no additional constitutional complaints Eyes: Eyes: Reports no additional eye complaints ENT: Reports hoarseness Cardiovascular: Cardiovascular: Reports as per HPI Respiratory: Respiratory: Reports as per HPI Gastrointestinal: Gastrointestinal: Reports dyspepsia, Reports heartburn and Reports nausea Genitourinary: Genitourinary: Reports no additional female genitourinary complaints Musculoskeletal: Musculoskeletal: Reports no additional musculoskeletal complaints Integumentary/Breasts: Skin/Breast: Reports system reviewed and no additional complaints, except as docu Neurologic: Reports system reviewed and no additional complaints, except as documented Psychiatric: Psychiatric: Reports no additional psychiatric complaints Endocrine: Endocrine: Reports no additional endocrine complaints Hematologic/Lymphatic: Hematologic/Lymphatic: Reports no additional hematologic/lymphatic complaints Allergic/Immunologic: Allergic/Immunologic: Reports no additional allergic/immunologic complaints PMFSH Past Medical History Medical History Gastritis H. pylori infection Kidney stones Migraine Surgical History Surgical History H/O lithotripsy H/O shoulder surgery History of cholecystectomy Hx of tubal ligation Family History Family History Father Acute myocardial infarction Other Diabetes mellitus Hypertension Social History Social History Smoking packs per day: 0.5 Smoking cigarettes per day: 10.0 Years smoked: 18 Smoking pack-years: 9.00 Smoking status: Former smoker Tobacco type: cigarettes Alcohol intake: current Alcohol use details: rare Substance use: never Substance use type: does not use Living arrangements: with family Gender identity (if verbalized by the patient): Female Spiritual care concerns: No Agree to blood products: Yes Exam Const: General: cooperative, healthy appearing and comfortable HENMT:
[2023-06-19] MEDS: SODIUM CHLORIDE 0.9% IV 1,000 ML 999 ML IV CONT (22:37)
[2023-06-19] MEDS: ONDANSETRON INJ 4 MG/2 ML VIAL IV PUSH (22:38)
[2023-06-19] MEDS: KETOROLAC 30 MG/ML VIAL (*BKC) IV PUSH (22:39)
[2023-06-19] MEDS: MORPHINE SULFATE (*CRX) 4 MG/ML INJ 2 MG IV PUSH (22:39)
[2023-06-19] MEDS: MAG HYDROX/ALUMINUM HYD/SIMETH 30 ML, PHENobarb/HYOSCY/ATROPINE/SCOP 32.4 MG, LIDOCAINE... PO (22:40)
[2023-06-19 22:59] LABS: Basophils Absolute Auto 0.03 K/mm3 (0.00-0.10); Basophils Percent Auto 0.2 % (0.0-1.0); Eosinophils Absolute Auto 0.24 K/mm3 (0.02-0.50); Eosinophils Percent Auto 1.8 % (1.0-6.0); Hematocrit 39.6 % (35.0-49.0); Hemoglobin 12.8 g/dL (12.0-15.0); Immature Granulocyte Absolute 0.08 K/mm3 (0.00-0.00); Immature Granulocyte Percent A 0.6 % (0.0-0.0); Lymphocytes Absolute Auto 2.41 K/mm3 (1.10-4.50); Mean Corpuscular HGB Conc 32.3 g/dL (32-36); Mean Corpuscular Hemoglobin 29.7 pg (27.0-31.0); Mean Corpuscular Volume 91.9 fL (78.0-102.0); Mean Platelet Volume 9.3 fl (9.2-11.8); Monocytes Absolute Auto 0.65 K/mm3 (0.10-0.90); Monocytes Percent Auto 4.9 % (2.0-11.0); Neutrophils Absolute Auto 9.95 K/mm3 (1.70-7.20); Neutrophils Percent Auto 74.5 % (50.0-70.0); Platelet Count Result 264 K/mm3 (150-420); Red Blood Count 4.31 M/mm3 (4.20-5.40); Red Cell Distribution Width 12.5 % (11.6-14.4); White Blood Count 13.4 K/mm3 (4.8-10.8)
[2023-06-19 23:07] LABS: Appearance Urine Clear (Clear); Bilirubin Urine Negative (Negative); Blood Urine 1+ (Negative); Color Urine Light Yellow (Yellow); Glucose Urine UA Negative (Negative); Ketones Urine Negative (Negative); Leukocyte Esterase Ur Negative LEU/UL (Negative); Nitrate Urine Negative (Negative); Protein Urine Negative (Negative); Specific Grav Ur 1.015 (1.010-1.020); Urobilinogen Urine 0.2 mg/dL (0.2-1.0)
[2023-06-19 23:15] LABS: Alanine Aminotransferase 26 U/L (14-59); Albumin Level 2.8 g/dL (3.4-5.0); Alkaline Phosphatase 100 U/L (46-116); Anion Gap 12 mmol/L (4-12); Aspartate Amino Transferase 13 U/L (15-37); Bilirubin,Total 0.1 mg/dL (0.00-1.00); Blood Urea Nitrogen 11 mg/dL (7-18); Calcium 8.1 mg/dL (8.5-10.1); Carbon Dioxide 25 mmol/L (21-32); Chloride 103 mmol/L (98-108); Estimated CRCL calculation 64 ml/min; Estimated Glomerular Filt Rate 57; Glucose 122 mg/dL (70-99); Lipase 64 U/L (16-77); Osmolality Calculated 290 mOsm/kg (285-295); Potassium 3.3 mmol/L (3.5-5.1); Sodium 140 mmol/L (136-145); Total Protein 6.3 g/dL (6.4-8.2)
[2023-06-19 23:16] LABS: Lactic Acid Reflex 1.3 mmol/L (0.4-2.0)
[2023-06-19 23:18] LABS: Add Urine Microscopic? YES; Squamous Epithelial Cell Urine Moderate /hpf (Few)
[2023-06-19] MEDS: PANTOPRAZOLE SODIUM IV 40 MG VIAL IV PUSH (23:57)
[2023-06-20] VITALS: O2SAT 97
--- NOTE | 2023-06-20 00:01 | ECG_ITS ---
SEE SCANNED COPY FOR CONFIRMED REPORT MTDD
[2023-06-20 00:02] VITALS: BP 105/95; O2SAT 97
[2023-06-20 00:15] VITALS: O2SAT 98
[2023-06-20 00:30] VITALS: O2SAT 96
[2023-06-20 00:32] VITALS: BP 110/92; PULSE 101; RESP 20; O2SAT 97
== END 2023-06-20 00:40 | disposition home or self-care (01) ==
PROVIDERS: Emergency Provider Family Medicine; PCP Family Medicine
DX: K21.9 Gastro-esophageal reflux disease without esophagitis (principal); Z87.11 Personal history of peptic ulcer disease; Z87.891 Personal history of nicotine dependence
CPT/HCPCS: 36415; 71045; 80053; 81001; 83605; 83690; 85025; 93005; 96361; 96374; 96375; 99284; A9270; C9113; J1885; J2270; J2405; J7030

== ENCOUNTER 2023-11-28 16:43 | Emergency (ER) | payer BC, SELFPAY ==
--- NOTE | ~2023-11-28 | CT_ITS ---
CLINICAL INDICATION: Right-sided flank pain. COMPARISON: 04/20/2022. TECHNIQUE: Computed tomography (CT) of the abdomen and pelvis was performed without intravenous contr ast. The dose-length product was 672.34 mGy-cm. FINDINGS/OBSERVATIONS: Visualized lower thorax:The bilateral lung bases are clear. The heart is of normal size, without pericardial effusion. A small hiatal hernia is present. Liver: The liver is unremarkable in size and attenuation Gallbladder and biliary system: The gallbladder is surgically absent. Pancreas: Limited evaluation of the pancreas secondary to the lack of intravenous contrast. Spleen: The spleen is unremarkable in echogenicity and size. Kidneys: Right sided hydroureteronephrosis secondary to a 7 mm calculus within the mid right ureter. Multiple subcentimeter nonobstructing stones identified bilaterally. The kidneys are nodular in contour, unchanged from 04/20/2022. Adrenal glands: The bilateral adrenal glands are unremarkable. Gastrointestinal tract: Bowel loops are decompressed, without a significant diverticulosis. Appendix:The appendix is not definitively visualized. However, no pericecal inflammatory change is id entified suggest the presence of acute appendicitis. Vasculature: Unremarkable Lymph nodes: No pathologically enlarged or morphologically suspicious lymph nodes within the retroper itoneum or at the root of the mesentery. Pelvic structures:The uterus is either surgically absent or markedly atrophic. The bladder is only minimally distended, limiting its evaluation. Body wall and musculoskeletal: No significant degenerative disease within the lower thoracic and lumb osacral spines. No lytic or blastic lesions identified. IMPRESSION: Moderate right-sided hydroureteronephrosis secondary to a 7 mm stone in the mid right ureter. Reviewed, dictated and finalized at location A.
[2023-11-28 16:48] VITALS: BP 147/102; PULSE 75; RESP 20; TEMP 36.6; O2SAT 100
--- NOTE | 2023-11-28 16:57 | ED.FEMALEGU ---
HPI - Female Genitourinary General Chief complaint: Urogenital-Female Stated complaint: VAGINAL BLEEDING Time Seen by Provider: 11/28/23 16:50 Source: patient Mode of arrival: ambulatory Limitations: no limitations History of Present Illness HPI Narrative: 43-year-old female with a history of psychosis, migraine, gastritis, kidney stones status post lithotripsy presents to the ED with a 1 day history of -- right flank pain which is continuous and rated as 9/10. The patient has nausea without any vomiting. No diarrhea. No fever or chills. -- Hematuria MD elicited complaint: flank pain Pertinent past history: hysterectomy Onset (ago): day(s) ( 1 day) Location of symptoms: flank Severity: severe Female Urogenital Radiation: Non-Radiating Severity scale (1-10): 9 Quality of pain: aching Consistency: constant Vaginal discharge: none Vaginal bleeding: none Urinary symptoms: Hematuria Exacerbating factors: none Relieving factors: none Associated symptoms: denies other symptoms Treatment prior to arrival: none Patient : No Related Data Home Medications Medication Instructions Recorded Confirmed topiramate 100 mg tablet 100 mg PO BID 08/18/21 11/28/23 sucralfate 1 gram tablet 1 g PO QID 11/11/21 11/28/23 atomoxetine 40 mg capsule 40 mg PO DAILY 11/28/23 11/28/23 (Strattera) clonazepam 0.5 mg tablet 0.5 mg PO DAILY 11/28/23 11/28/23 deutetrabenazine 24 mg 24 mg PO DAILY 11/28/23 11/28/23 tablet,extended release 24 hr (Austedo XR) lurasidone 60 mg tablet 60 mg PO DAILY 11/28/23 11/28/23 mirtazapine 7.5 mg tablet 7.5 mg PO DAILY 11/28/23 11/28/23 prazosin 1 mg capsule 1 mg PO DAILY 11/28/23 11/28/23 Allergies Allergy/AdvReac Type Severity Reaction Status Date / Time codeine AdvReac Intermediate Vomiting Verified 11/28/23 17:28 Review of Systems Review of Systems: All systems reviewed & are unremarkable except as noted in HPI and below Constitutional: Constitutional: Reports as per HPI and Reports no additional constitutional complaints Eyes: Eyes: Reports as per HPI and Reports no additional eye complaints ENT: Reports system reviewed and no additional complaints, except as documented and Reports as per HPI Cardiovascular: Cardiovascular: Reports as per HPI and Reports no additional cardiovascular complaints Respiratory: Respiratory: Reports as per HPI and Reports no additional respiratory complaints Gastrointestinal: Gastrointestinal: Reports as per HPI and Reports no additional gastrointestinal complaints Comments: right flank pain with hematuria Genitourinary: Genitourinary: Reports hematuria Musculoskeletal: Musculoskeletal: Reports no additional musculoskeletal complaints and Reports as per HPI Integumentary/Breasts: Skin/Breast: Reports system reviewed and no additional complaints, except as docu and Reports as per HPI Neurologic: Reports system reviewed and no additional complaints, except as documented and Reports as per HPI Psychiatric: Psychiatric: Reports no additional psychiatric complaints and Reports as per HPI Endocrine: Endocrine: Reports no additional endocrine complaints and Reports as per HPI Hematologic/Lymphatic: Hematologic/Lymphatic: Reports no additional hematologic/lymphatic complaints and Reports as per HPI Allergic/Immunologic: Allergic/Immunologic: Reports no additional allergic/immunologic complaints and Reports as per HPI PMFSH Past Medical History Medical History Gastritis H. pylori infection Kidney stones Migraine Surgical History Surgical History H/O lithotripsy H/O shoulder surgery History of cholecystectomy Hx of tubal ligation Family History Family History Father Acute myocardial infarction Other Diabetes mellitus Hypertension Social History Social History (Rev
[2023-11-28 17:44] LABS: Appearance Urine Clear (Clear); Bilirubin Urine 2+ (Negative); Blood Urine 3+ (Negative); Glucose Urine UA Trace (Negative); Ketones Urine 1+ (Negative); Leukocyte Esterase Ur 2+ LEU/UL (Negative); Nitrate Urine Positive (Negative); Protein Urine 3+ (Negative); Specific Grav Ur 1.025 (1.010-1.020); pH Urine 6.5 (5.0-8.0)
--- NOTE | 2023-11-28 17:45 | PC.NURSE ---
PT IS AWAITING CT RESULTS AT THIS TIME. SON IS AT BEDSIDE. PT REPORTS PAIN TO RT FLANK. WILL CONTINUE TO MONITOR.
[2023-11-28 17:46] LABS: Add Urine Microscopic? YES; Bacteria Urine 2+ /hpf; Color Urine Dark Red (Yellow); RBC Urine >75 /hpf (0-2); Squamous Epithelial Cell Urine None seen /hpf (Few); WBC Urine >75 /hpf (0-3)
[2023-11-28 17:57] LABS: Basophils Absolute Auto 0.04 K/mm3 (0.00-0.10); Basophils Percent Auto 0.3 % (0.0-1.0); Eosinophils Absolute Auto 0.09 K/mm3 (0.02-0.50); Eosinophils Percent Auto 0.7 % (1.0-6.0); Hematocrit 41.9 % (35.0-49.0); Hemoglobin 14.2 g/dL (12.0-15.0); Immature Granulocyte Absolute 0.05 K/mm3 (0.00-0.00); Immature Granulocyte Percent A 0.4 % (0.0-0.0); Lymphocytes Absolute Auto 2.46 K/mm3 (1.10-4.50); Lymphocytes Percent Auto 19.5 % (18.0-42.0); Mean Corpuscular HGB Conc 33.9 g/dL (32-36); Mean Corpuscular Hemoglobin 29.8 pg (27.0-31.0); Mean Corpuscular Volume 87.8 fL (78.0-102.0); Mean Platelet Volume 9.6 fl (9.2-11.8); Monocytes Percent Auto 5.5 % (2.0-11.0); Neutrophils Absolute Auto 9.29 K/mm3 (1.70-7.20); Neutrophils Percent Auto 73.6 % (50.0-70.0); Platelet Count Result 292 K/mm3 (150-420); Red Blood Count 4.77 M/mm3 (4.20-5.40); Red Cell Distribution Width 13.8 % (11.6-14.4); White Blood Count 12.6 K/mm3 (4.8-10.8)
[2023-11-28] MEDS: LACTATED RINGERS 1,000 ML 999 ML IV CONT (18:04)
[2023-11-28] MEDS: KETOROLAC 30 MG/ML VIAL (*BKC) IV PUSH (18:05)
[2023-11-28 18:13] LABS: Alanine Aminotransferase 29 U/L (14-59); Albumin Level 3.2 g/dL (3.4-5.0); Alkaline Phosphatase 114 U/L (46-116); Anion Gap 12 mmol/L (4-12); Aspartate Amino Transferase 17 U/L (15-37); Bilirubin,Total 0.4 mg/dL (0.00-1.00); Blood Urea Nitrogen 8 mg/dL (7-18); Calcium 8.7 mg/dL (8.5-10.1); Carbon Dioxide 21 mmol/L (21-32); Chloride 103 mmol/L (98-108); Estimated CRCL calculation 62 ml/min; Estimated Glomerular Filt Rate 57; Glucose 103 mg/dL (70-99); Lipase 21 U/L (16-77); Osmolality Calculated 280 mOsm/kg (285-295); Potassium 3.4 mmol/L (3.5-5.1); Sodium 136 mmol/L (136-145); Total Protein 7.1 g/dL (6.4-8.2)
[2023-11-28 18:18] LABS: Lactic Acid Reflex 0.7 mmol/L (0.4-2.0)
--- NOTE | 2023-11-28 18:32 | PC.NURSE ---
PT IS LYING ON STRETCHER, SON REMAINS AT BEDSIDE. PAIN HAS IMPROVED SLIGHTLY, IVF INFUSING ORDERED WITHOUT DIFFICULTY. WILL CONTINUE TO MONITOR.
--- NOTE | 2023-11-28 19:14 | PC.NURSE ---
Patient report received from [facility]. ED staff awaiting call back from hospitalist at transfer facility. RN monitoring.
[2023-11-28 19:20] VITALS: BP 124/74; PULSE 66; RESP 18; TEMP 36.9; O2SAT 98
[2023-11-28] MEDS: levoFLOXacin 500 MG/D5W 100 ML 500 MG/100 ML BAG 100 MG IVPB (19:23)
--- NOTE | 2023-11-28 19:40 | PC.NURSE ---
patient awake and alert resting on stretcher without distress, iv infusing without difficulty or complaints. patient ambulatory to bathroom on her own. son leaving to get patient medications and food.
[2023-11-28] MEDS: TAMSULOSIN HCL 0.4 MG CAPSULE PO (20:07)
[2023-11-28] MEDS: HYDROmorphone HCL INJ (*CRX) 2 MG/ML VIAL 0.5 MG IV PUSH (20:08)
[2023-11-28] MEDS: PROCHLORPERAZINE EDISYLATE 10 MG/2 ML VIAL IV PUSH (20:13)
[2023-11-28] MEDS: TOPIRAMATE 100 MG TABLET PO (20:50)
[2023-11-28] MEDS: PRAZOSIN HCL 1 MG CAPSULE PO (20:50)
[2023-11-28] MEDS: DEUTETRABENAZINE 30 MG 1 EACH PO (20:50)
[2023-11-28] MEDS: PHARMACIST COMMUNICATION ORDER 1 EACH XX (20:50)
[2023-11-28] MEDS: MIRTAZAPINE 7.5 MG TABLET PO (20:50)
--- NOTE | 2023-11-28 20:53 | PC.NURSE ---
Patient reports taking her home medication, including those listed on APR (prazosin; topiramate; mirtazapine) in addition to Austedo XR 30 mg. ERP (Jose) aware, medication approved for patient to take at this time. Medication attempted to be ordered to be reflected taken on APR without success as it does not appear in the computer medication library.
[2023-11-28 21:22] VITALS: BP 122/84; PULSE 66; RESP 18; TEMP 36.4; O2SAT 97
--- NOTE | 2023-11-30 13:25 | PC.NURSE ---
FINAL URINE CULTURE REVEAL MIXED GENITAL HERMANN. PT TRANSFERRED TO OUTSIDE FACILITY.
== END 2023-11-28 21:35 | disposition short-term general hospital (02) ==
PROVIDERS: Emergency Provider Internal Medicine Critical Care Medicine; PCP Family Medicine
DX: N20.0 Calculus of kidney (principal); N39.0 Urinary tract infection, site not specified; Z79.899 Other long term (current) drug therapy; Z87.891 Personal history of nicotine dependence
CPT/HCPCS: 36415; 74176; 80053; 81001; 83605; 83690; 85025; 87086; 96361; 96365; 96375; 99285; A9270; J0780; J1171; J1885; J1956; J7120

== ENCOUNTER 2023-11-28 22:45 | Observation (INO) | payer BC, SELFPAY ==
--- NOTE | ~2023-11-28 | XR_ITS ---
EXAMINATION: XR retrograde pyelo w/stent RT DATE: 11/29/2023 14:03 INDICATION: Right retrograde ureteral stent placement TECHNIQUE: 11 fluoroscopic images of the abdomen and pelvis were obtained during procedure performed by Dr. Hui. Radiologist was not present for the imaging or procedure. The amount of fluoroscopy time used during this procedure was 0.3 minutes. COMPARISON: 11/29/2023 FINDINGS: Right ureteral stone projects to the right of the L3-L4 disc space. Subsequent image demonstrates A c ontrast injection into the right ureter. The wires then advanced into an upper pole calyx of the righ t kidney is subsequently replaced with a retrograde internal ureteral stent with loops formed in the right renal pelvis on the final image. The stone remains in the proximal to mid right ureter projecti ng over the inferior margin of the right transverse process of L3 on the final image. IMPRESSION: 1. Fluoroscopy utilized during right internal ureteral stent placement which is in expected position on the final image. See procedure note for further detail. 2. Persistent 7 mm stone in the proximal to mid right ureter. Reviewed, dictated and finalized at location A. IMPRESSION: 1. Fluoroscopy utilized during right internal ureteral stent placement which is in expected position on the final image. See procedure note for further detail . 2. Persistent 7 mm stone in the proximal to mid right ureter.
--- NOTE | ~2023-11-28 | XR_ITS ---
XR abdomen/kub 1V Ordering provider: Jcarlos Hui MD History: . right ureteral calculus PRE OP . Comparison: February 04, 2019 FINDINGS: BOWEL: Nonobstructive bowel gas pattern. ORGANOMEGALY: None. Status post cholecystectomy. SIGNIFICANT PATHOLOGIC CALCIFICATIONS: Calcific area seen in the right side of the pelvis. Calcific shadow also projected over the right paraspinal area at the level of L4. OTHER: No free air is seen under the diaphragm. IMPRESSION: NO ACUTE ABDOMINAL FINDINGS. Calcific shadows in the right paraspinal area near to the superior endplate area of L4 and in the rig ht side of the pelvis. Reviewed, dictated and finalized at location A. IMPRESSION: NO ACUTE ABDOMINAL FINDINGS. Calcific shadows in the right paraspinal area near to the superior endplate are a of L4 and in the right side of the pelvis.
--- NOTE | ~2023-11-28 | XR_ITS ---
EXAMINATION: XR abdomen/kub 1V DATE: 11/30/2023 07:59 INDICATION: Ureteral stone. TECHNIQUE: A supine view of the abdomen on 2 radiographs was obtained. COMPARISON: CT abdomen and pelvis 11/28/2023 FINDINGS: There are no dilated loops of bowel. There is a 3 mm stone in left kidney. Surgical clips i n the right upper quadrant are likely from cholecystectomy. There is a right internal ureteral stent in expected position. There is an 8 x 5 mm stone in proximal right ureter. There is a phlebolith in r ight pelvis. IMPRESSION: 1. 8 x 5 mm stone in proximal right ureter with right internal ureteral stent in expected position. 2. 3 mm left kidney stone. Reviewed, dictated and finalized at location A.
--- NOTE | 2023-11-28 22:26 | ADMGEN ---
This patient, Lakesha Snyder, was admitted to [facility] Surg Room 319-01. Patient/family oriented to hospital policies and general routines including ID bracelet, bed and alarms, visiting hours, pain management, procedures, bathroom and other care routines, personal items, smoking policy, room service/diet, and visiting hours. Information on how to activate the Rapid Response Team has been discussed. Patient/Family are encouraged to report perceived risks to care and to ask questions if they do not understand what they are told or what they should do.
[2023-11-28 22:48] VITALS: BP 122/82; PULSE 70; RESP 16; TEMP 36.4; O2SAT 99; BMI 40.1
[2023-11-28] MEDS: SODIUM CHLORIDE 0.9% IV 1,000 ML 100 ML IV CONT (23:08)
[2023-11-28 23:22] LABS: INR 1.1; Prothrombin Time 14.8 Seconds (11.1-14.7)
[2023-11-28 23:23] LABS: Partial Thromboplastin Time 32.1 Seconds (22.3-36.8)
[2023-11-28 23:26] LABS: Anion Gap 7 mmol/L (4-12); Blood Urea Nitrogen 9 mg/dL (7-17); Calcium 8.5 mg/dL (8.4-10.2); Carbon Dioxide 23 mmol/L (22-30); Chloride 105 mmol/L (98-107); Estimated CRCL calculation 55 ml/min; Estimated Glomerular Filt Rate 49; Glucose 110 mg/dL (65-110); Potassium 3.2 mmol/L (3.4-5.0); Sodium 135 mmol/L (137-145)
--- NOTE | 2023-11-28 23:46 | PM.IMHP ---
H&P: HPI History of Present Illness Date/Time: 11/28/23 23:46 Chief Complaint: R flank pain. Narrative: This is a 43-year-old female with past medical history significant for kidney stones, migraine headache. Patient presents to the emergency room at [facility] due to right flank pain for 3 days radiating to the groin area 8/10 in intensity. Preliminary workup was significant for right-sided ureter 7 mm with hydronephrosis and hydroureter, Leukocyte count of 12,000, creatinine 1.2 urinalysis showed numerous WBCs present in the urine. Patient has been admitted for further evaluation management and treatment. CLINICAL INDICATION: Right-sided flank pain. COMPARISON: 04/20/2022. TECHNIQUE: Computed tomography (CT) of the abdomen and pelvis was performed without intravenous contrast. The dose-length product was 672.34 mGy-cm. FINDINGS/OBSERVATIONS: Visualized lower thorax:The bilateral lung bases are clear. The heart is of normal size, without pericardial effusion. A small hiatal hernia is present. Liver: The liver is unremarkable in size and attenuation Gallbladder and biliary system: The gallbladder is surgically absent. Pancreas: Limited evaluation of the pancreas secondary to the lack of intravenous contrast. Spleen: The spleen is unremarkable in echogenicity and size. Kidneys: Right sided hydroureteronephrosis secondary to a 7 mm calculus within the mid right ureter. Multiple subcentimeter nonobstructing stones identified bilaterally. The kidneys are nodular in contour, unchanged from 04/20/2022. Adrenal glands: The bilateral adrenal glands are unremarkable. Gastrointestinal tract: Bowel loops are decompressed, without a significant diverticulosis. Appendix:The appendix is not definitively visualized. However, no pericecal inflammatory change is identified suggest the presence of acute appendicitis. Vasculature: Unremarkable Lymph nodes: No pathologically enlarged or morphologically suspicious lymph nodes within the retroperitoneum or at the root of the mesentery. Pelvic structures:The uterus is either surgically absent or markedly atrophic. The bladder is only minimally distended, limiting its evaluation. Body wall and musculoskeletal: No significant degenerative disease within the lower thoracic and lumbosacral spines. No lytic or blastic lesions identified. IMPRESSION: Moderate right-sided hydroureteronephrosis secondary to a 7 mm stone in the mid right ureter. Review of Systems Review of Systems: right flank pain PMFSH Past Medical History Medical History Gastritis H. pylori infection Kidney stones Migraine Surgical History Surgical History H/O lithotripsy H/O shoulder surgery History of cholecystectomy Hx of tubal ligation Family History Family History Father Acute myocardial infarction Other Diabetes mellitus Hypertension Social History Social History Smoking packs per day: 0.5 Smoking cigarettes per day: 10.0 Years smoked: 27 Smoking pack-years: 13.50 Smoking status: Current every day smoker Tobacco type: cigarettes Second hand tobacco smoke exposure: Yes Alcohol intake: current Drinks per week: 1 Alcohol use details: rare Substance use: never Substance use type: does not use Do You Feel Safe in your Home?: Yes Lack of Transportation: YES Lack of Food: Never True Current Housing: I Have Housing Concerned About Future Housing: No Difficulty Paying Gas/Electric Bills: YES Difficulty Paying for Meds: YES Currently Unemployed: YES Education: High School Diploma/GED Difficulty w/ Childcare or Family Care: No Living arrangements: with family Gender identity (if verbalized by the patient): Fema
[2023-11-29] VITALS (14 sets, daily range): BP systolic 93–127; BP diastolic 55–97; PULSE 58–84; RESP 14–22; TEMP 36.2–36.6; O2SAT 95–100
[2023-11-29] MEDS: HYDROmorphone HCL INJ (*CRX) 1 MG/ML SYR IV PUSH ×3 (03:16→17:49)
--- NOTE | 2023-11-29 07:48 | WPDURCON ---
Assessment and Plan Assessment and plan (1) Ureteral calculus, right: Code(s): N20.1 - Calculus of ureter Status: Acute Assessment and Plan: Given patient has urinary tract infection was simply proceed with cystoscopy right retrograde, right stent placement today. Stone will need to be addressed at a later point time. Obtain KUB to see if it is visible for lithotripsy as outpatient. Urology Consult Note HPI Date Seen: 11/29/23 Time Seen: 07:48 Requesting Physician: Hiram Cortez MD Primary Care Provider: Julissa Rollins, Consult Narrative Reason for consult: 7 mm obstructing right ureteral calculus with UTI Narrative: Lakesha Snyder is a 43 year old female with prior history of stones presented to an outside facility with right flank plain radiating to the right lower quadrant. Evaluation at that facility with CT scan reveals a 7 mm proximal ureteral stone with hydronephrosis. Her white count was 12,000 with a creatinine of 1.2. Urinalysis with nitrite positive and leukocytes present. Denies any fevers and she has been afebrile at this facility. She now presents for further management. Review of Systems Review of Systems: All systems reviewed & are unremarkable except as noted in HPI and below PMFSH Past Medical History Medical History Gastritis H. pylori infection Kidney stones Migraine Surgical History Surgical History H/O lithotripsy H/O shoulder surgery History of cholecystectomy Hx of tubal ligation Family History Family History Father Acute myocardial infarction Other Diabetes mellitus Hypertension Social History Social History Smoking packs per day: 0.5 Smoking cigarettes per day: 10.0 Years smoked: 27 Smoking pack-years: 13.50 Smoking status: Current every day smoker Tobacco type: cigarettes Second hand tobacco smoke exposure: Yes Alcohol intake: current Drinks per week: 1 Alcohol use details: rare Substance use: never Substance use type: does not use Do You Feel Safe in your Home?: Yes Lack of Transportation: YES Lack of Food: Never True Current Housing: I Have Housing Concerned About Future Housing: No Difficulty Paying Gas/Electric Bills: YES Difficulty Paying for Meds: YES Currently Unemployed: YES Education: High School Diploma/GED Difficulty w/ Childcare or Family Care: No Living arrangements: with family Gender identity (if verbalized by the patient): Female Spiritual care concerns: No Agree to blood products: Yes Meds Home Medications and Allergies Home Medications Medication Instructions Recorded Confirmed Type topiramate 100 mg tablet 100 mg PO BID 08/18/21 11/28/23 History sucralfate 1 gram tablet 1 g PO QID 11/11/21 11/28/23 History atomoxetine 40 mg capsule 40 mg PO DAILY 11/28/23 11/28/23 History (Strattera) clonazepam 0.5 mg tablet 0.5 mg PO DAILY 11/28/23 11/28/23 History deutetrabenazine 24 mg 24 mg PO DAILY 11/28/23 11/28/23 History tablet,extended release 24 hr (Austedo XR) lurasidone 60 mg tablet 60 mg PO DAILY 11/28/23 11/28/23 History mirtazapine 7.5 mg tablet 7.5 mg PO DAILY 11/28/23 11/28/23 History prazosin 1 mg capsule 1 mg PO DAILY 11/28/23 11/28/23 History Allergies Allergy/AdvReac Type Severity Reaction Status Date / Time codeine AdvReac Intermediate Vomiting Verified 11/28/23 22:55 Vital Signs Vital Signs - 24 hr 11/28/23 22:50 11/28/23 22:48 11/29/23 05:11 Temperature 36.4 C 36.2 C L Pulse Rate 70 84 Respiratory Rate 16 16 Blood Pressure 122/82 93/63 L Pulse Oximetry 99 96 Oxygen Delivery Room Air Exam Const: General: cooperative and no acute distress Resp: Effort & Inspecti
--- NOTE | 2023-11-29 08:23 | PM.IMPN ---
Progress Note: A&P Assessment and Plan (1) Ureteral calculus, right: Code(s): N20.1 - Calculus of ureter Status: Acute Assessment and Plan: Right sided hydroureteronephrosis secondary to a 7 mm calculus within the mid right ureter. place in observation urology consult plan for cystoscopy right retrograde, right stent placement today. Stone will need to be addressed at a later point time. Obtain KUB to see if it is visible for lithotripsy as outpatient. IV fluids (2) Urinary tract infection: Code(s): N39.0 - Urinary tract infection, site not specified Status: Inactive Assessment and Plan: IV Rocephin (3) Flank pain, acute: Code(s): R10.9 - Unspecified abdominal pain Status: Acute Assessment and Plan: pain management Dilaudid and Toradol Time Spent With Patient Time with patient: Greater than 35 minutes Subjective Date/time seen: 11/29/23 08:23 Interval history: 43-year-old female with past medical history significant for kidney stones, migraine headache. Patient presents to the emergency room at [facility] due to right flank pain for 3 days radiating to the groin area 8/10 in intensity found having UTI with leukocyte esterase 2+, and positive for nitrates started on ceftriaxon. Plan for cystoscopy right retrograde, right stent placement today. Stone will need to be addressed at a later point time. Obtain KUB to see if it is visible for lithotripsy as outpatient. Patient hypotensive this morning a 1 L fluid bolus ordered. Review of Systems Review of Systems: right flank pain Constitutional: Constitutional: Reports no additional constitutional complaints Eyes: Eyes: Reports no additional eye complaints ENT: Reports as per HPI Cardiovascular: Cardiovascular: Reports no additional cardiovascular complaints Respiratory: Respiratory: Reports no additional respiratory complaints Gastrointestinal: Gastrointestinal: Reports no additional gastrointestinal complaints Genitourinary: Genitourinary: Reports dysuria, Reports urinary hesitancy and Reports urinary urgency Musculoskeletal: Musculoskeletal: Reports no additional musculoskeletal complaints Integumentary/Breasts: Skin/Breast: Reports as per HPI Neurologic: Reports as per HPI Psychiatric: Psychiatric: Reports no additional psychiatric complaints Exam Const: General: comfortable, no acute distress, well developed, alert, awake and average body habitus Nutritional Appearance: average body habitus Orientation/consciousness: patient oriented x3 HENMT: Head: normal to inspection, normocephalic and atraumatic Ears: hearing grossly normal bilaterally Face/Nose/Sinus: normal facial exam Face and sinus: normal facial exam Eyes: General: appearance normal, both eyes and all related structures Pupils: Equal, round and reactive pupils present EOM: EOMs intact bilaterally Neck: Neck: full ROM, no lymphadenopathy and no JVD Thyroid: thyroid normal Lymphatic: no lymphadenopathy noted Resp: Effort & Inspection: normal respiratory effort and able to speak in complete sentences Auscultation: clear to auscultation bilaterally Cardio: Jugular venous distension: no JVD Rate: regular rate Rhythm: regular rhythm Heart sounds: S1 normal heart sound present and S2 normal heart sound present : General: Yes deferred Skin: Rashes: no rashes Wounds: no wounds Neuro: General: patient oriented x3 and CN's II-XI intact bilaterally Cranial nerves: Yes CN's II-XII intact bilaterally and Yes Equal, round and reactive pupils present Cognition (Neuro): normal cognition Speech: normal speech Gait exam (Neuro): Normal gait present Motor exam (neuro): 5/5 motor strength present throughout Extrem: General: normal to inspection, full ROM, no joint enlargement and no pedal edema Psych: Mental Status: mental status grossly normal Objective Data Vital Signs Vital Signs: Vital Signs
[2023-11-29] MEDS: SODIUM CHLORIDE 0.9% IV 1,000 ML 100 ML IV CONT (10:46)
[2023-11-29] MEDS: SODIUM CHLORIDE 0.9% IV 1,000 ML 999 ML IV CONT (10:46)
[2023-11-29] MEDS: KETOROLAC 15 MG/ML VIAL (*BKC) IV PUSH ×2 (10:46→21:53)
--- NOTE | 2023-11-29 12:04 | WPDHPUPDATE1 ---
History and Physical Update Update Date/Time: 11/29/23 12:04 History and Physical has been reviewed, including an updated exam of the patient. There are NO changes in the patient's condition. Risks, benefits, and alternatives have been discussed and questions answered. Patient agrees to proceed with procedure. Proceed with cystoscopy, right retrograde pyelogram, right ureteral stent placement
--- NOTE | 2023-11-29 12:15 | PC.NURSE ---
Patient off floor to OR via wheelchair. Report given to Jenny BEVERLY.
--- NOTE | 2023-11-29 13:03 | WPDANESEPPF ---
Anes - Initial Pre Proc Eval Procedure: Operation Date: 11/29/23 15:00 Proposed Procedures p Cystoscopy, Right Retrograde Pyelogram, Right Stent Placement - Jcarlos Hui MD Date/Time: 11/29/23 13:03 Surgeon: Hiram Cortez MD Pre Op Diagnosis: Kidney stone Patient Data Age: 43 Gender: F Height: 1.52 m Weight: 93.4 kg Last Vital Signs Temp 36.2 C L 11/29/23 05:11 Pulse 84 11/29/23 05:11 Resp 16 11/29/23 05:11 BP 93/63 L 11/29/23 05:11 Pulse Ox 96 11/29/23 05:11 O2 Del Method Room Air 11/29/23 08:25 Allergies Allergy/AdvReac Type Severity Reaction Status Date / Time codeine AdvReac Intermediate Vomiting Verified 11/28/23 22:55 Home Medications Medication Instructions Recorded Confirmed Type topiramate 100 mg tablet 100 mg PO BID 08/18/21 11/28/23 History sucralfate 1 gram tablet 1 g PO QID 11/11/21 11/28/23 History atomoxetine 40 mg capsule 40 mg PO DAILY 11/28/23 11/28/23 History (Strattera) clonazepam 0.5 mg tablet 0.5 mg PO DAILY 11/28/23 11/28/23 History deutetrabenazine 24 mg 24 mg PO DAILY 11/28/23 11/28/23 History tablet,extended release 24 hr (Austedo XR) lurasidone 60 mg tablet 60 mg PO DAILY 11/28/23 11/28/23 History mirtazapine 7.5 mg tablet 7.5 mg PO DAILY 11/28/23 11/28/23 History prazosin 1 mg capsule 1 mg PO DAILY 11/28/23 11/28/23 History Laboratory Tests 11/28/23 23:04 PT 14.8 H Seconds (11.1-14.7) INR 1.1 APTT 32.1 Seconds (22.3-36.8) Sodium 135 L mmol/L (137-145) Potassium 3.2 L mmol/L (3.4-5.0) Chloride 105 mmol/L (98-107) Carbon Dioxide 23 mmol/L (22-30) Anion Gap 7 mmol/L (4-12) BUN 9 mg/dL (7-17) Creatinine 1.20 H mg/dL (0.7-1.0) Estim Creat Clear Calc 55 ml/min Estimated GFR 49 L (59 - ) Glucose 110 mg/dL (65-110) Calcium 8.5 mg/dL (8.4-10.2) Patient hx anesthesia problems: none Family hx anesthesia problems: none Results Review: All pre-operative results and documents have been reviewed as part of the pre-operative evaluation. [facility] Past Medical History Medical History (Updated 11/29/23 @ 13:03 by Justice Diez MD) Gastritis H. pylori infection Kidney stones Migraine Morbid obesity Schizophrenia Surgical History Surgical History H/O lithotripsy H/O shoulder surgery History of cholecystectomy Hx of tubal ligation Family History Family History Father Acute myocardial infarction Other Diabetes mellitus Hypertension Social History Social History Smoking packs per day: 0.5 Smoking cigarettes per day: 10.0 Years smoked: 27 Smoking pack-years: 13.50 Smoking status: Current every day smoker Tobacco type: cigarettes Second hand tobacco smoke exposure: Yes Alcohol intake: current Drinks per week: 1 Alcohol use details: rare Substance use: never Substance use type: does not use Do You Feel Safe in your Home?: Yes Lack of Transportation: YES Lack of Food: Never True Current Housing: I Have Housing Concerned About Future Housing: No Difficulty Paying Gas/Electric Bills: YES Difficulty Paying for Meds: YES Currently Unemployed: YES Education: High School Diploma/GED Difficulty w/ Childcare or Family Care: No Living arrangements: with family Gender identity (if verbalized by the patient): Female Spiritual care concerns: No Agree to blood products: Yes Anes - Eval Final PreProcedure Day of Procedure 11/29/23 13:03 Patient weight: morbidly obese Heart: regular rate and rhythm Lungs: clear to auscultation Airway: Mallampati scale and other (edentulous) Neurological: alert and oriented Last oral intake: >/= 8 hours ASA classification: III Emergent: no Anesthetic plan: proceed Anesthesia typ
[2023-11-29] MEDS: LIDOCAINE HCL 2% GEL UROJET 10 ML PKG MUCOUS MEM (13:50)
--- NOTE | 2023-11-29 13:58 | W.PM.PROC2 ---
Procedure Note - Detailed Date of Procedure 11/29/23 Pre-op Diagnosis Obstructing right ureteral calculus with UTI Post-op Diagnosis Same Procedure Performed Cystoscopy, right retrograde, right ureteral stent placement 4.8 [place] contour Surgeon Jcarlos Hui MD Anesthesia General Description of Procedure Patient was taken the operative suite correctly identified. Once anesthesia was obtained she was placed in dorsal lithotomy position and prepped and draped usual sterile fashion. Twenty-two [place] scope inserted in the bladder. There is no tumors noted. The right ureteral orifice was cannulated with a ureteral catheter and pyelogram was performed. Contrast made its way up to the kidney. Sensor wire was then placed up to the kidney. 4.8 [place] contour stent was then placed with the proximal end coiled in the renal pelvis and the distal in the bladder. Bladder was drained. 2% viscous lidocaine was inserted into the urethra patient is taken recovery stable condition. Stone will need to be addressed at a later point time when she gets over her urinary tract infection. Will obtain a KUB prior to her discharge to make sure the stone is still visible for lithotripsy in the future. This completes dictation. Please send a copy of op note to my office Estimated Blood Loss 0 Drains Yes Packing No Pathology None sent Complications No immediate complications Condition Stable Disposition PACU
[2023-11-29] MEDS: LACTATED RINGERS 1,000 ML 30 ML IV CONT (14:03)
[2023-11-29] MEDS: LURASIDONE 60 MG PO (17:49)
[2023-11-29] MEDS: [UNRECOGNIZED DRUG - OTHER] PO (17:49)
[2023-11-29] MEDS: TOPIRAMATE 100 MG TABLET PO (20:36)
[2023-11-29] MEDS: SUCRALFATE 1 GM TABLET PO (20:36)
[2023-11-30] MEDS: SODIUM CHLORIDE 0.9% IV 1,000 ML 100 ML IV CONT ×2 (00:53→11:57)
[2023-11-30 01:03] VITALS: BP 105/67; PULSE 71; RESP 16; TEMP 36.2; O2SAT 97
[2023-11-30] MEDS: KETOROLAC 15 MG/ML VIAL (*BKC) IV PUSH ×2 (02:09→08:38)
--- NOTE | 2023-11-30 04:18 | PC.NURSE ---
read, reviewed and agree with Vero Pascual RN charting and documentation
[2023-11-30 05:22] VITALS: BP 100/60; PULSE 55; RESP 16; TEMP 36.2; O2SAT 98
[2023-11-30] MEDS: SUCRALFATE 1 GM TABLET PO ×2 (05:28→11:57)
--- NOTE | 2023-11-30 07:59 | PM.DS ---
DS: Admitting Diagnosis Discharge Date 11/30/23 Admitting Diagnosis Right ureteral calculus Flank pin, acute DS: Discharge Diagnosis Discharge Diagnosis (1) Ureteral calculus, right: Code(s): N20.1 - Calculus of ureter Status: Acute (2) Urinary tract infection: Code(s): N39.0 - Urinary tract infection, site not specified Status: Inactive (3) Flank pain, acute: Code(s): R10.9 - Unspecified abdominal pain Status: Acute DS: Summary Hospital Course Reason for hospitalization: Right ureteral calculus Flank pain, acute Hospital Course: This is a 43-year-old female who presented to the hospital on 11/28/2023 with complaint of right flank pain. Workup was significant for right-sided ureter 7 mm stone in the mid right ureter. Abdomen x-ray showed no acute abdominal findings, calcific shadows in the right paraspinal area and urine to the superior endplate area of L4 and in the right side of the pelvis. Urology was consulted and took patient to the OR for cystoscopy with right retrograde urethral stent placement. Initial labs showed a white blood cell count of 12.6, potassium 3.4, creatinine 1.05 otherwise unremarkable. A UA was obtained and showed a urine specific gravity of 1.025, 3+ urine protein, trace glucose, 1+ urine ketone, 3+ urine blood, positive nitrate, 2+ urine bilirubin, 2+ leukocyte, greater than 75 urine RBC, greater than 75 urine WBC, 2+ urine bacteria. A urine culture was obtained and was negative on final read. She was initially started on Rocephin and then was taken off Rocephin once urine culture was negative. Patient is stable for discharge at this time. She will need to follow up with Urology in 1 week. Final diagnosis: Right ureteral calculus Status at Discharge Cognitive/behavioral status at discharge: Alert and oriented x3 Functional status at discharge: independent ambulation Overall status at discharge: patient is progressing back to baseline Time Spent with Patient Time attestation: Total time spent providing and/or coordinating discharge services: Time spent: Greater than 30 minutes Exam Narrative: General: In no acute distress, well nourished Head: atraumatic, no encephalopathy Eyes: EOMI, PERRLA, sclera clear ENT: moist mucous membranes, nasal passages clear Neck: supple, no JVD, no adenopathy, trachea midline Cardiac: Normal S1 and S2. No murmur, gallops or friction rubs, peripheral pulses intact. Respiratory: Lungs clear to auscultation, no adventitious lung sounds Gastrointestinal: soft, non-distended, non-tender, normoactive bowel sounds. : voiding without difficulty. Extremities: moves all extremities well, no edema, good ROM, strength 5/5 Skin: clean, dry, intact. No wounds or lesions. Neuro: Alert and oriented x4, cranial nerves intact, no neuro deficits. Psych: normal mood, normal affect, interactive DS: Data Data Completed and Pending Completed studies during hospitalization: Abdomen x-ray Retrograde pyelogram Pending studies at discharge: None Procedures/Treatments: Cystoscopy, right retrograde, right ureteral stent placement 4.8 nep[place] contour Discharge Plan Discharge Attending physician on discharge: Stone Monahan Consulting providers: Jcarlos Hui; Paul Santana; Lani Rayo; Justice Diez; Kannan Jack; Shay Sanford V.; Dixie Mo Discharging Clinician: Norma Mena Anticipated Discharge Date/Time: 11/30/23 07:58 Patient Disposition: Home, Self-Care Activity: as tolerated Diet: as tolerated Discharge Instructions: Follow up with Dr. Hui in 1 week. Stent will stay in place at least until office visit Your urine culture was negative and antibiotics are not warranted. Patient Instructions: Kidney Stones (DC) Patient Language: Croatian Stand Alone Forms: General Discharge Information Follow-up/Referrals: Jcarlos Hui MD [Physician] - 1 Week Disc
[2023-11-30] MEDS: POTASSIUM CHLORIDE 20 MEQ ER TABLET 40 MEQ PO (08:38)
[2023-11-30] MEDS: MIRTAZAPINE 7.5 MG TABLET PO (08:38)
[2023-11-30] MEDS: clonazePAM (*CRX) 0.5 MG TABLET PO (08:38)
[2023-11-30] MEDS: PRAZOSIN HCL 1 MG CAPSULE PO (08:38)
[2023-11-30] MEDS: LURASIDONE 60 MG PO (08:39)
[2023-11-30] MEDS: [UNRECOGNIZED DRUG - OTHER] PO (08:39)
[2023-11-30 09:52] VITALS: BP 113/70; PULSE 62; RESP 18; TEMP 36.4; O2SAT 99
[2023-11-30 13:52] VITALS: BP 118/81; PULSE 70; RESP 18; TEMP 36.1; O2SAT 99
--- NOTE | 2023-11-30 14:13 | WPDANESPN ---
Anes - Prog Note Post-Op Date/Time: 11/30/23 14:13 Cardiovascular status: normal Respiratory status: normal Airway patency: baseline Mental status: baseline Post-Op hydration status: normal Vital Signs: Last Vital Signs Temp 36.1 C L 11/30/23 13:52 Pulse 70 11/30/23 13:52 Resp 18 11/30/23 13:52 BP 118/81 11/30/23 13:52 Pulse Ox 99 11/30/23 13:52 O2 Del Method Room Air 11/30/23 08:35 O2 Flow Rate 6 11/29/23 14:30 Pain Score (VAS): 0/10 I/O: Intake & Output 11/29/23 11/30/23 11/30/23 23:59 07:59 15:59 Intake Total [phone] Balance 1820 567 [id number] Laboratory Tests 11/28/23 23:04 Post-procedural complaints: none Patient Feedback: Patient satisfied with anesthetic care.
== END 2023-11-30 16:10 | disposition home or self-care (01) ==
PROVIDERS: Urology; Admitting Provider Internal Medicine; PCP Family Medicine; Visit Provider Nurse Practitioner Acute Care
PROC: (CPT 52352; principal; 2023-11-29 15:00)
DX: N13.2 Hydronephrosis with renal and ureteral calculous obstruction (principal); N39.0 Urinary tract infection, site not specified; F17.210 Nicotine dependence, cigarettes, uncomplicated
CPT/HCPCS: 52332; 36415; 74018; 74420; 80048; 85610; 85730; A9270; C1758; C1769; C2617; G0378; G0379; J0696; J1100; J1171; J1885; J2003; J2250; J2405; J2704; J3010; J7030; J7120; Q9966